=== PATIENT | female | born 1950 | race Caucasian/White ===

== ENCOUNTER → 2017-03-16 | Outpatient (CLI) | payer OTHER ==
[~2017-03-16] MED LIST: MULT-506 PO
--- NOTE | 2017-03-17 07:43 | MAMMOGRAPHY REPORT ---
BILATERAL DIGITAL SCREENING MAMMOGRAM TOMOSYNTHESIS WITH CAD: 03/16/2017 CLINICAL HISTORY: Routine screening. TECHNIQUE: Breast tomosynthesis in addition to standard 2D mammography was performed. Current study was also evaluated with a Computer Aided Detection (CAD) system. COMPARISON: Comparison is made to exams dated: 03/14/2016 mammogram, 03/12/2015 mammogram, 02/28/2014 ma mmogram, 02/12/2013 mammogram, 02/10/2012 mammogram, and 12/31/2010 mammogram - [facility]. BREAST COMPOSITION: The tissue of both breasts is heterogeneously dense, which may obscure small mas ses. FINDINGS: No suspicious masses, calcifications, or areas of architectural distortion are noted in ei ther breast. There has been no significant interval change compared to prior exams. Bilateral asymme tries and scattered benign-appearing calcifications are stable compared to prior exams. IMPRESSION: ACR BI-RADS CATEGORY 2: BENIGN There is no mammographic evidence of malignancy. A 1 year screening mammogram is recommended. The pa tient will receive written notification of the results. Approximately 10% of breast cancers are not detected with mammography. A negative mammographic report should not delay biopsy if a clinically suggestive mass is present. Frida Aguero M.D. /:03/16/2017 16:33:12 Computing Services Director: Mitch GAN)(M), [facility] letter sent: Normal 1/2 BI-RADS Code: ACR BI-RADS Category 2: Benign
== END | disposition home or self-care (01) ==
LOC: C.MAMM 09:56
PROVIDERS: ATTEND Family Medicine
DX: Z12.31 Encounter for screening mammogram for malignant neoplasm of breast (principal)

== ENCOUNTER → 2017-08-24 | Outpatient (CLI) | payer OTHER ==
[2017-08-24 12:16] LABS: BASO % 1.7 %; BASO ABS # 0.07 K/uL (0-0.2); EOS ABS # 0.12 K/uL (0-0.5); HEMATOCRIT 45.4 % (37-47); HEMOGLOBIN 15.1 g/dL (12.0-16.0); IG# 0.01 K/uL (0.00-0.02); LYMPH % 34.7 %; LYMPH ABS # 1.39 K/uL (1.2-3.4); MEAN CELL VOLUME 94.4 fL (80-100); MEAN CORPUSCULAR HEMOGLOBIN 31.4 pg (25-34); MEAN CORPUSCULAR HGB CONC 33.3 g/dl (32-36); MEAN PLATELET VOLUME 10.7 fL (7.4-10.4); MONO % 10.2 %; MONO ABS # 0.41 K/uL (0.11-0.59); NEUT % 50.2 %; NEUT ABS # 2.01 K/uL (1.4-6.5); PLATELET COUNT 296 K/uL (130-400); RED CELL DISTRIBUTION WIDTH CV 12.9 % (11.5-14.5); WHITE BLOOD COUNT 4.01 K/uL (4.8-10.8)
[2017-08-24 12:22] LABS: ALBUMIN 4.3 gm/dl (3.4-5.0); ALT/SGPT 33 U/L (12-78); AST/SGOT 19 U/L (15-37); BLOOD UREA NITROGEN 24 mg/dl (7-18); CALCIUM 10.4 mg/dl (8.5-10.1); CARBON DIOXIDE 28 mmol/L (21-32); CHOLESTEROL 265 mg/dl (0-200); CREATININE 0.66 mg/dl (0.60-1.20); GLUCOSE 102 mg/dl (70-99); POTASSIUM 4.4 mmol/L (3.5-5.1); SODIUM 139 mmol/L (136-145); TOTAL PROTEIN 7.7 gm/dl (6.4-8.2)
[2017-08-24 12:31] LABS: ALKALINE PHOSPHATASE 160 U/L (45-117); LDL CHOLESTEROL CALCULATED 191 mg/dl
== END | disposition home or self-care (01) ==
LOC: C.LAB1850 09:39
PROVIDERS: ATTEND Neuromusculoskeletal Medicine & OMM
DX: Z00.00 Encounter for general adult medical examination without abnormal findings (principal); E78.00 Pure hypercholesterolemia, unspecified; E83.52 Hypercalcemia

== ENCOUNTER 2020-08-15 14:05 | Observation (INO) ==
--- NOTE | 2020-08-15 14:38 | Emergency Department Note ---
History of Present Illness General Chief complaint: Neuro Symptoms/Deficit Stated complaint: KIDNEY SURG 08/12,NOW WEAKNESS IN LEFT ARM Time Seen by Provider: 08/15/20 14:23 Source: patient History of Present Illness Provider complaint: Left arm weakness Onset (ago): hour(s) Location: upper extremity and left Radiation: non-radiation Severity: severe Pain Consistency: + now resolved Quality: + other (Arm is flopping) Relieved By: + none Exacerbated By: + none Associated symptoms: no chest pain, no cough, no fever/chills, no nausea/vomiting and no shortness of breath This is a 70-year-old female who presents with left arm weakness intermittently since yesterday morning. The patient states that yesterday she had 3 episodes s tarting in the morning where she had flopping of her left hand where she could not move it. She states the episodes lasted a little over 20 minutes. She did recently have stent placement by urology and she called them and they took her off of Cipro. She states that today at 1 PM she developed floppiness of the entire left arm. This lasted approximately half an hour and is now completely resolved. She denies any numbness to the upper extremity. She states that she has had several weeks of neck pain but her pain never radiates down her arm. She denies any numbness or weakness to her other extremities. She has had no difficulty with her speech, walking, swallowing, thinking or vision. She denies any fever, chest pain, shortness of breath, vomiting, abdominal pain, diarrhea or urinary symptoms. She did have a urinary stent placed [address] Panchal. Home Medications Medication Instructions Recorded Confirmed Type cholecalciferol (vitamin D3) 2,000 unit PO QAM #30 tab 06/12/18 08/15/20 Rx [Vitamin D3] omeprazole 20 mg capsule,delayed 20 mg PO HS #90 cap 04/13/20 08/15/20 Rx release sulfamethoxazole 800 1 tab PO BID 3 Days #6 tab 08/14/20 08/15/20 Rx mg-trimethoprim 160 mg tablet acetaminophen-codeine 1 tab PO Q8H PRN 08/15/20 08/15/20 History Allergies Allergy/AdvReac Type Severity Reaction Status Date / Time honey Allergy Unknown SOB,SWELLING Verified 08/12/20 05:51 THROAT ibuprofen Allergy Unknown Unknown Verified 08/12/20 05:51 Iodinated Contrast Media Allergy Unknown Anaphylaxis Verified 08/12/20 05:51 Penicillins Allergy Unknown PASED OUT Verified 08/12/20 05:51 shellfish derived Allergy Unknown Anaphylaxis Verified 08/12/20 05:51 yellow dye Allergy Unknown SIMILAR Unverified 08/12/20 05:51 SYMPTOMS TO ANAPHYLAXIS BUT NOT SEVERE Past Med/Surg History Medical History (Updated 08/15/20 @ 17:43 by Max Oquendo MD) Arthritis Borderline high blood pressure GERD (gastroesophageal reflux disease) Hypercholesterolemia Kidney stones Osteoarthritis Osteoporosis Raynauds disease PT DENIES Temporomandibular joint disorder HX OF, NO RECENT PROBLEM WITH Vitamin D deficiency Surgical History H/O tubal ligation H/O: hysterectomy History of ankle surgery RIGHT History of colonoscopy History of kidney surgery LEFT FOR STONE History of lithotripsy History of open reduction and internal fixation (ORIF) procedure Right leg History of parathyroid surgery History of tooth extraction Family History Father Myocardial infarction Mother Breast cancer Unknown Cancer Other Heart disease Denies family history of Ovarian cancer Prostate cancer Colorectal cancer Social History Smoking Status: Never smoker Second Hand Exposure: No; Hx Alcohol Use: No Hx Substance Use: No Preferred Language: Swedish Communication Ability: Effective Visual Impairment: No Limitations Legal Technician Required: No Beliefs That Will Affect Care: None marital status: Current Living Situation: Spouse Current Living Situation Comment: AND 3 ADULT CHILDREN 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 and A total of 10 systems reviewed and were otherwise negative Physical Exam Vital Signs Vital Signs - 24 hr 08/15/20 14:07 08/15/20 14:40 08/15/20 14:45 Temperature 36.5 C Temperature Source Temporal Artery Scan Pulse Rate 92 H Pulse Rate [Apical] Pulse Rate from SpO2 Sensor Respiratory Rate 18 Respiratory Effort / Characteristics Non-Labored Spontaneous Respiratory Depth Normal Blood Pressure 159/95 H Blood Pressure [Right Arm] Blood Pressure Mean 116 Blood Pressure Mean [Right Arm] Blood Pressure Position Sitting Pulse Oximetry 96 95 Oxygen Delivery Method Room Air Room Air Room Air Sepsis Recent Fever Within 48 Hours No Sepsis New/Unexplained Change in Mental Status No Sepsis Action Taken by Nursing No Action Required 08/15/20 14:59 08/15/20 15:00 08/15/20 15:30 Temperature Temperature Source Pulse Rate 85 85 Pulse Rate [Apical] 79 Pulse Rate from SpO2 Sensor 85 84 Respiratory Rate 18 16 20 Respiratory Effort / Characteristics Non-Labored Spontaneous Respiratory Depth Blood Pressure 183/98 H 176/103 H Blood Pressure [Right Arm] 177/105 H Blood Pressure Mean 126 127 Blood Pressure Mean [Right Arm] 129 Blood Pressure Position Pulse Oximetry 97 97 94 Oxygen Delivery Method Room Air Room Air Room Air Sepsis Recent Fever Within 48 Hours Sepsis New/Unexplained Change in Mental Status Sepsis Action Taken by Nursing 08/15/20 16:00 08/15/20 16:05 08/15/20 16:30 Temperature Temperature Source Pulse Rate 96 H 75 91 H Pulse Rate [Apical] Pulse Rate from SpO2 Sensor 81 Respiratory Rate 18 20 13 Respiratory Effort / Characteristics Respiratory Depth Blood Pressure 180/114 H 169/132 H 156/90 H Blood Pressure [Right Arm] Blood Pressure Mean 136 144 112 Blood Pressure Mean [Right Arm] Blood Pressure Position Pulse Oximetry 95 98 95 Oxygen Delivery Method Room Air Room Air Sepsis Recent Fever Within 48 Hours Sepsis New/Unexplained Change in Mental Status Sepsis Action Taken by Nursing 08/15/20 17:01 08/15/20 17:33 Temperature Temperature Source Pulse Rate 88 88 Pulse Rate [Apical] Pulse Rate from SpO2 Sensor Respiratory Rate 18 20 Respiratory Effort / Characteristics Respiratory Depth Blood Pressure 187/105 H 175/95 H Blood Pressure [Right Arm] Blood Pressure Mean 132 121 Blood Pressure Mean [Right Arm] Blood Pressure Position Pulse Oximetry 98 95 Oxygen Delivery Method Sepsis Recent Fever Within 48 Hours Sepsis New/Unexplained Change in Mental Status Sepsis Action Taken by Nursing Constitutional: Vital signs reviewed. Eyes: Pupils are equal round reactive to light. Conjunctiva are noninjected. ENT: Pharynx is clear without erythema or exudate. Mucous membranes are moist. Neck supple without meningeal signs. Respiratory: Clear to auscultation bilaterally. Breath sounds are equal camryn aterally. Cardiovascular: Regular rate and rhythm. No rubs or gallops. GI: Soft, nondistended and nontender. Bowel sounds are present. Musculoskeletal: No peripheral edema. No lower extremity tenderness. Integumentary: No cyanosis. or jaundice. Neurologic: The patient is awake and alert. Cranial nerves II-XII are intact. Motor is 5 out of 5 all extremities. Sensation is intact to light touch all extremities. Normal speech. No pronator drift. No limb ataxia. Psychiatric: Normal affect. Not anxious appearing. Course Administered Medications Discontinued Medications Acetaminophen (Acetaminophen 325 Mg Tab) 650 mg PO NOW STA Stop: 08/15/20 15:43 Last Admin: 08/15/20 15:49 Dose: 650 mg Documented by: [id number] Aspirin (Aspirin 81 Mg Chew) 324 mg PO NOW STA Stop: 08/15/20 15:53 Last Admin: 08/15/20 15:59 Dose: 324 mg Documented by: [id number] Lorazepam (Lorazepam 0.5 Mg Tab) 0.5 mg PO UD ONE Stop: 08/15/20 16:59 Last Admin: 08/15/20 17:25 Dose: 0.5 mg Documented by: [id number] Medical Decision Making Differential Diagnosis TIA, CVA, intracranial hemorrhage, intracranial mass, cervical radiculopathy Medical Records Attestation: I reviewed the patient's medical records. I did perform a limited focused review of portions of the patient's old chart on the electronic medical record. The patient underwent Cystoscopy, left ureteroscopy with laser lithotripsy, stone extraction and retrograde pyelogram and left stent placement by Dr. Panchal 3 days ago. Home Medications Current Medication List: was personally reviewed by me Laboratory Data Attestation: I reviewed the patient's lab results. Result diagrams: 08/15/20 14:42 08/15/20 14:42 Lab Results 08/15/20 08/15/20 08/15/20 Range/Units 14:38 14:42 14:42 WBC 5.12 (4.8-10.8) K/uL RBC 4.45 (4.2-5.4) M/uL Hgb 14.5 (12.0-16.0) g/dL Hct 43.3 (37-47) % MCV 97.3 (80-100) fL MCH 32.6 (25-34) pg MCHC 33.5 (32-36) g/dL RDW Std Deviation 44.8 (36.4-46.3) fL RDW Coeff of Rowena 12.7 (11.5-14.5) % Plt Count 371 (130-400) K/uL MPV 9.9 (7.4-10.4) fL Immature Gran % (Auto) 0.0 % Neut % (Auto) 49.8 % Lymph % (Auto) 34.6 % Terrell % (Auto) 12.1 % Eos % (Auto) 2.7 % Baso % (Auto) 0.8 % Neut # (Auto) 2.55 (1.4-6.5) K/uL Lymph # (Auto) 1.77 (1.2-3.4) K/uL Terrell # (Auto) 0.62 H (0.11-0.59) K/uL Eos # (Auto) 0.14 (0-0.5) K/uL Baso # (Auto) 0.04 (0-0.2) K/uL Immature Gran # (Auto) 0.00 (0.00-0.02) K/uL PT (9.0-12.0) Seconds INR (0.9-1.1) APTT (21.0-31.0) Seconds PTT Ratio Sodium (136-145) mmol/L Potassium (3.5-5.1) mmol/L Chloride (98-107) mmol/L Carbon Dioxide (21-32) mmol/L Anion Gap (3-11) BUN (7-18) mg/dl Creatinine (0.6-1.2) mg/dl Est Cr Clr Drug Dosing ml/min Est GFR ( Amer) Est GFR (Non-Af Amer) BUN/Creatinine Ratio (10-20) Glucose (70-99) mg/dl POC Glucose 94 (70-99) mg/dl Calcium (8.5-10.1) mg/dl Magnesium (1.8-2.4) mg/dl Total Bilirubin (0.2-1) mg/dl AST (15-37) U/L ALT (12-78) U/L Alkaline Phosphatase (45-117) U/L Troponin I (0-0.045) ng/ml Total Protein (6.4-8.2) gm/dl Albumin (3.4-5.0) gm/dl Globulin (2.5-4.0) gm/dl Albumin/Globulin Ratio (0.9-2) COVID-19 Eval Order SARS-CoV-2, RNA, NAAT (NEGATIVE) Blood Type O Positive Antibody Screen NEGATIVE 08/15/20 08/15/20 08/15/20 Range/Units 14:42 14:42 15:45 WBC (4.8-10.8) K/uL RBC (4.2-5.4) M/uL Hgb (12.0-16.0) g/dL Hct (37-47) % MCV (80-100) fL MCH (25-34) pg MCHC (32-36) g/dL RDW Std Deviation (36.4-46.3) fL RDW Coeff of Rowena (11.5-14.5) % Plt Count (130-400) K/uL MPV (7.4-10.4) fL Immature Gran % (Auto) % Neut % (Auto) % Lymph % (Auto) % Terrell % (Auto) % Eos % (Auto) % Baso % (Auto) % Neut # (Auto) (1.4-6.5) K/uL Lymph # (Auto) (1.2-3.4) K/uL Terrell # (Auto) (0.11-0.59) K/uL Eos # (Auto) (0-0.5) K/uL Baso # (Auto) (0-0.2) K/uL Immature Gran # (Auto) (0.00-0.02) K/uL PT 9.8 (9.0-12.0) Seconds INR 1.0 (0.9-1.1) APTT 28.6 (21.0-31.0) Seconds PTT Ratio 1.1 Sodium 141 (136-145) mmol/L Potassium 4.1 (3.5-5.1) mmol/L Chloride 107 (98-107) mmol/L Carbon Dioxide 30 (21-32) mmol/L Anion Gap 4.0 (3-11) BUN 21 H (7-18) mg/dl Creatinine 0.76 (0.6-1.2) mg/dl Est Cr Clr Drug Dosing 60.9 ml/min Est GFR ( Amer) 91.5 Est GFR (Non-Af Amer) 78.9 BUN/Creatinine Ratio 27.1 H (10-20) Glucose 92 (70-99) mg/dl POC Glucose (70-99) mg/dl Calcium 10.6 H (8.5-10.1) mg/dl Magnesium 2.3 (1.8-2.4) mg/dl Total Bilirubin 0.4 (0.2-1) mg/dl AST 13 L (15-37) U/L ALT 30 (12-78) U/L Alkaline Phosphatase 171 H (45-117) U/L Troponin I < 0.015 (0-0.045) ng/ml Total Protein 7.7 (6.4-8.2) gm/dl Albumin 4.0 (3.4-5.0) gm/dl Globulin 3.7 (2.5-4.0) gm/dl Albumin/Globulin Ratio 1.1 (0.9-2) COVID-19 Eval [email or web address] SARS-CoV-2, RNA, NAAT (NEGATIVE) Blood Type Antibody Screen 08/15/20 Range/Units 15:45 WBC (4.8-10.8) K/uL RBC (4.2-5.4) M/uL Hgb (12.0-16.0) g/dL Hct (37-47) % MCV (80-100) fL MCH (25-34) pg MCHC (32-36) g/dL RDW Std Deviation (36.4-46.3) fL RDW Coeff of Rowena (11.5-14.5) % Plt Count (130-400) K/uL MPV (7.4-10.4) fL Immature Gran % (Auto) % Neut % (Auto) % Lymph % (Auto) % Terrell % (Auto) % Eos % (Auto) % Baso % (Auto) % Neut # (Auto) (1.4-6.5) K/uL Lymph # (Auto) (1.2-3.4) K/uL Terrell # (Auto) (0.11-0.59) K/uL Eos # (Auto) (0-0.5) K/uL Baso # (Auto) (0-0.2) K/uL Immature Gran # (Auto) (0.00-0.02) K/uL PT (9.0-12.0) Seconds INR (0.9-1.1) APTT (21.0-31.0) Seconds PTT Ratio Sodium (136-145) mmol/L Potassium (3.5-5.1) mmol/L Chloride (98-107) mmol/L Carbon Dioxide (21-32) mmol/L Anion Gap (3-11) BUN (7-18) mg/dl Creatinine (0.6-1.2) mg/dl Est Cr Clr Drug Dosing ml/min Est GFR ( Amer) Est GFR (Non-Af Amer) BUN/Creatinine Ratio (10-20) Glucose (70-99) mg/dl POC Glucose (70-99) mg/dl Calcium (8.5-10.1) mg/dl Magnesium (1.8-2.4) mg/dl Total Bilirubin (0.2-1) mg/dl AST (15-37) U/L ALT (12-78) U/L Alkaline Phosphatase (45-117) U/L Troponin I (0-0.045) ng/ml Total Protein (6.4-8.2) gm/dl Albumin (3.4-5.0) gm/dl Globulin (2.5-4.0) gm/dl Albumin/Globulin Ratio (0.9-2) COVID-19 Eval Order SARS-CoV-2, RNA, NAAT NEGATIVE (NEGATIVE) Blood Type Antibody Screen Imaging Data Radiologist's Impression: CT OF THE HEAD WITHOUT CONTRAST CLINICAL HISTORY: Left arm weakness. COMPARISON STUDY: No previous studies for comparison. CT DOSE: 687.98 mGy.cm TECHNIQUE: Helical axial images of the head were obtained without IV contrast. Automated exposure control was utilized for the study. A dose lowering technique was utilized adhering to the principles of ALARA. FINDINGS: No acute intracranial hemorrhage, midline shift or mass effect is present. The ventricular system is unremarkable. The basal cisterns are patent. No extra-axial collections are present. There are no findings to suggest acute dural sinus thrombosis or acute territorial infarct. No significant calvarial abnormalities are present. Visualized portions of the sinuses and mastoid air cells are clear. IMPRESSION: No acute intracranial findings. ACT 112: Negative or not required by law. Electronically signed by: Chava Varela M.D. 08/15/2020 2:58 PM Dictated: 08/15/20 145 Transcribed: 08/15/20 145 XR chest 1V portable CLINICAL HISTORY: Stroke Like Symptoms COMPARISON STUDY: Chest radiograph June 25, 2020. FINDINGS: Lung volumes are normal. Lungs are clear. There is no pneumothorax or pleural effusion. Cardiac size is stable. Mediastinal contours are normal. There is no evidence for pulmonary edema. IMPRESSION: No acute cardiopulmonary findings. ACT 112: Negative or not required by law. Electronically signed by: Chava Varela M.D. 08/15/2020 3:17 PM Dictated: 08/15/20 151 Transcribed: 08/15/201516 ECG Data Attestation: I personally reviewed and interpreted this ECG as follows: Indication: + other (Stroke symptoms) Rate (beats per minute): 86 Rhythm: + normal sinus ECG ST segments: no ST elevation ECG Findings: + LVH (Moderate voltage criteria); no PVCs MDM Narrative I did evaluate the patient as noted above. The patient appears to be having multiple TIAs. She stated she had "floppy" weakness of her left hand 3 times yesterday each lasting slightly over 20 minutes at a time. She then had the same symptoms over her entire arm today which lasted about 30 minutes. Currently she is neurologically intact and her NIH score 0. She does have a headache but states that she has had some neck pain for 3 weeks and it causes her to have headaches. She was given Tylenol for this. IV access was established. I did place an order for continuous cardiac monitoring. The monitor showed normal sinus rhythm at a rate of 85 bpm. I did order and personally review the patient's 12-lead EKG as described above. There is no evidence of dysrhythmia or acute ischemia. I did order and personally reviewed the images of the patient's chest x-ray as described above. There is no evidence of acute findings. I did order and review the patient's blood work as noted in the electronic medical record. CBC, electrolytes and coagulation panel is unremarkable. Troponin is negative. I did order a CT of the head. I did r eview the images myself as well as the radiology report as described above. There is no evidence of acute intracranial abnormality. I did reassess the patient. She does not have any symptoms at this time. I did discuss the test results with her and recommended she stay in the hospital for TIA work-up including MRI and MRA of the brain. She could not receive a CTA because of an anaphylactic reaction to IV contrast. I did discuss case with the hospitalist and case folder. Impression & Plan TIA (transient ischemic attack), Left arm weakness Discharge Plan Visit Data Chief Complaint: Neuro Symptoms/Deficit Stated Complaint: KIDNEY SURG 08/12,NOW WEAKNESS IN LEFT ARM ED Provider: Max Oquendo Discharge Problem: TIA (transient ischemic attack), Left arm weakness Patient Disposition: Being Evaluated by Hospitalist Forms Stand Alone Forms: [facility] Prescriptions Prescriptions: No Action omeprazole 20 mg capsule,delayed release(DR/EC) 20 mg PO HS Qty: 90 RF: 1 sulfamethoxazole-trimethoprim [Bactrim DS] 800-160 mg tablet 1 tab PO BID 3 Days Qty: 6 RF: 0 acetaminophen-codeine 300-30 mg tablet 1 tab PO Q8H PRN (Reason: Pain) RF: 0 cholecalciferol (vitamin D3) [Vitamin D3] 1,000 unit Tablet 2,000 unit PO QAM Qty: 30 RF: 0 Referrals Referrals: Patricia Elias MD [Primary Care Provider] -
[2020-08-15 14:56] LABS: Basophils # (auto) 0.04 K/uL (0-0.2); Basophils % (auto) 0.8 %; Eosinophils # (auto) 0.14 K/uL (0-0.5); Eosinophils % (auto) 2.7 %; Hematocrit (blood only) 43.3 % (37-47); Hemoglobin 14.5 g/dL (12.0-16.0); Lymphocytes # (auto) 1.77 K/uL (1.2-3.4); Lymphocytes % (auto) 34.6 %; Mean Corpuscular Hemoglobin 32.6 pg (25-34); Mean Corpuscular Hgb Conc 33.5 g/dL (32-36); Mean Corpuscular Volume 97.3 fL (80-100); Mean Platelet Volume 9.9 fL (7.4-10.4); Monocytes # (auto) 0.62 K/uL (0.11-0.59); Monocytes % (auto) 12.1 %; Neutrophils # (auto) 2.55 K/uL (1.4-6.5); Neutrophils % (auto) 49.8 %; Platelet Count 371 K/uL (130-400); RDW Coefficient of Variation 12.7 % (11.5-14.5); RDW Standard Deviation 44.8 fL (36.4-46.3); Red Blood Count 4.45 M/uL (4.2-5.4); White Blood Count 5.12 K/uL (4.8-10.8)
--- NOTE | 2020-08-15 14:59 | CT Scan Report ---
CT OF THE HEAD WITHOUT CONTRAST CLINICAL HISTORY: Left arm weakness. COMPARISON STUDY: No previous studies for comparison. CT DOSE: 687.98 mGy.cm TECHNIQUE: Helical axial images of the head were obtained without IV contrast. Automated exposure con trol was utilized for the study. A dose lowering technique was utilized adhering to the principles o f ALARA. FINDINGS: No acute intracranial hemorrhage, midline shift or mass effect is present. The ventricular system is unremarkable. The basal cisterns are patent. No extra-axial collections are present. There are no findings to suggest acute dural sinus thrombosis or acute territorial infarct. No significant calvarial abnormalities are present. Visualized portions of the sinuses and mastoid air cells are gladys ar. IMPRESSION: No acute intracranial findings. ACT 112: Negative or not required by law. Electronically signed by: Chava Varela M.D. 08/15/2020 2:58 PM
[2020-08-15 15:12] LABS: Alanine Aminotransferase 30 U/L (12-78); Aspartate Aminotransferase 13 U/L (15-37); BUN Creatinine Ratio 27.1 (10-20); Blood Urea Nitrogen 21 mg/dl (7-18); Calcium 10.6 mg/dl (8.5-10.1); Carbon Dioxide 30 mmol/L (21-32); Chloride 107 mmol/L (98-107); Creatinine Clr Calc Pharmacy 60.9 ml/min; Est GFR (African American) 91.5; Est GFR (Non-African American) 78.9; Glucose 92 mg/dl (70-99); Magnesium 2.3 mg/dl (1.8-2.4); Potassium 4.1 mmol/L (3.5-5.1); Sodium 141 mmol/L (136-145)
[2020-08-15 15:16] LABS: Albumin Globulin Ratio 1.1 (0.9-2); Alkaline Phosphatase 171 U/L (45-117); Bilirubin,Total 0.4 mg/dl (0.2-1); Globulin 3.7 gm/dl (2.5-4.0); Partial Thromboplastin Ratio 1.1; Partial Thromboplastin Time 28.6 Seconds (21.0-31.0); Prothrombin Time 9.8 Seconds (9.0-12.0); Total Protein 7.7 gm/dl (6.4-8.2); Troponin I < 0.015 ng/ml (0-0.045)
--- NOTE | 2020-08-15 15:18 | XRay Report ---
XR chest 1V portable CLINICAL HISTORY: Stroke Like Symptoms COMPARISON STUDY: Chest radiograph June 25, 2020. FINDINGS: Lung volumes are normal. Lungs are clear. There is no pneumothorax or pleural effusion. Car diac size is stable. Mediastinal contours are normal. There is no evidence for pulmonary edema. IMPRESSION: No acute cardiopulmonary findings. ACT 112: Negative or not required by law. Electronically signed by: Chava Varela M.D. 08/15/2020 3:17 PM
[2020-08-15] MEDS ORDERED: ACETAMINOPHEN 325 MG TAB PO STA (15:42)
[2020-08-15] MEDS ORDERED: ASPIRIN 81 MG CHEW PO STA (15:52)
--- NOTE | 2020-08-15 16:56 | History & Physical Report ---
Date of Service August 15, 2020 Assessment & Plan (1) CVA (cerebral vascular accident): Symptoms of left arm weakness resolved but MRI brain positive for CVA. Complete workup with TTE, Carotid US, HbA1C and lipid panel with AM labs ASA 324mg PO chew given in ER. Will continue ASA 81mg PO daily. Statin depending on LDL in AM. HbA1C and lipid panel with AM labs Allow permissive hypertension PT/OT consults No need for speech consult Consult neurology (2) Left arm weakness: As above. No cervical spine pathology noted to be causing this despite Hx neck pain and frontal headaches. (3) Osteoporosis: Continue vitamin D supplementaiton (4) GERD (gastroesophageal reflux disease): Switch omeprazole for pantoprazole per hospital formulary (5) Nephrolithiasis: s/p lithotripsy and left stent placement Continue outpatient Bactrim (6) Hyperparathyroidism: Noted history of such. (7) DVT prophylaxis: Lovenox 40mg SQ daily Admission and Anticipated Discharge Date Admission Date: Aug 16, 2020 History of Present Illness Chief Complaint: Left arm weakness Primary Care Provider: Patricia Elias MD Linda Arreguin is a 70 year old female who presents to the ER with left arm weakness. This started yesterday with intermittent left hand weakness with possible tingling sensation in her fingers. Episodes would last for 5 minutes and occurred 4-5 times yesterday. She underwent lithotripsy 3 days ago and has been on ciprofloxacin, therefore she called her urologist office yesterday due to concern the ciprofloxacin was causing her left hand symptoms and was switched to Bactrim although she is yet to pick this up. Around 1pm today her whole left arm went sudden weak lasting approximately 30 minutes. Completely resolved by the time she came to the ER. No speech, hearing, vision, facial weakness noted. No fever/chills. She reports a longer history of "migraine" headaches. These have been going on for 2 months with no history prior to this. She reports flashing lights in both eyes followed by a bilateral aching frontal headache which is not pulsating but constant. She treats this with acetaminophen and episode last around 2 hours. For the past 2 weeks she has also been seeing a chiropractor for right sided neck pain which has gradually been getting worse over the time without any sensory radiation down her arm. She notes no history of cervical radicular symptoms. Stroke risk - non-smoker, no hypertension, no prior RI or CVA, no hyperlipidemia. In the ER she underwent CT head with no acute intracranial abnormality. Unable to have CTA due to anaphylaxis to IV contrast previously. No telestroke was performed due to complete resolution of symptoms. Given neck pain and intermittent nature of symptoms she was kept in ER to perform further workup to see if she could be discharged from the ER with MRI/MRA head, MRI cervical spine to r/o radicular pathology and carotid US. Lorazepam ordered due to severe claustrophobia. Subsequent MRI showed acute CVA and she was referred to medicine for admission and ongoing management of such. Allergies Allergy/AdvReac Type Severity Reaction Status Date / Time honey Allergy Unknown SOB,SWELLING Verified 08/12/20 05:51 THROAT ibuprofen Allergy Unknown Unknown Verified 08/12/20 05:51 Iodinated Contrast Media Allergy Unknown Anaphylaxis Verified 08/12/20 05:51 Penicillins Allergy Unknown PASED OUT Verified 08/12/20 05:51 shellfish derived Allergy Unknown Anaphylaxis Verified 08/12/20 05:51 yellow dye Allergy Unknown SIMILAR Unverified 08/12/20 05:51 SYMPTOMS TO ANAPHYLAXIS BUT NOT SEVERE Home Medications Medication Instructions Recorded Confirmed Type cholecalciferol (vitamin D3) 2,000 unit PO QAM #30 tab 06/12/18 08/15/20 Rx [Vitamin D3] omeprazole 20 mg capsule,delayed 20 mg PO HS #90 cap 04/13/20 08/15/20 Rx release sulfamethoxazole 800 1 tab PO BID 3 Days #6 tab 08/14/20 08/15/20 Rx mg-trimethoprim 160 mg tablet acetaminophen-codeine 1 tab PO Q8H PRN 08/15/20 08/15/20 History Past Med/Surg History Medical History Arthritis Borderline high blood pressure GERD (gastroesophageal reflux disease) Hypercholesterolemia Kidney stones Osteoarthritis Osteoporosis Raynauds disease PT DENIES Temporomandibular joint disorder HX OF, NO RECENT PROBLEM WITH Vitamin D deficiency Surgical History H/O tubal ligation H/O: hysterectomy History of ankle surgery RIGHT History of colonoscopy History of kidney surgery LEFT FOR STONE History of lithotripsy History of open reduction and internal fixation (ORIF) procedure Right leg History of parathyroid surgery History of tooth extraction Family History Father Myocardial infarction Mother Breast cancer Unknown Cancer Other Heart disease Denies family history of Ovarian cancer Prostate cancer Colorectal cancer Social History Smoking Status: Never smoker Second Hand Exposure: No; Hx Alcohol Use: No Hx Substance Use: No Preferred Language: Ugandan Communication Ability: Effective Visual Impairment: No Limitations Registered Diet Technician Required: No Beliefs That Will Affect Care: None marital status: Current Living Situation: Spouse Current Living Situation Comment: AND 3 ADULT CHILDREN 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 Other Information That Helps Us Care for You: No Feels Safe at Home: Yes Safety Concerns: Feels Safe At This Time Seatbelt Use: always Assistive Devices: Glasses Assistive Devices Comment: Partial lower Review of Systems Review of Systems: All systems reviewed & are unremarkable except as noted in HPI & below Physical Exam Constitutional: well developed and well nourished; no acute distress Eyes: PERRL, conjunctivae normal, anicteric sclerae ENMT: external ear and nose normal, oropharynx normal Neck: trachea midline, no thyromegaly Respiratory: normal respiratory effort, lungs clear to auscultation Cardiovascular: RRR, no murmur, no edema Gastrointestinal (Abdomen): normal bowel sounds, soft, nontender, no hepatosplenomegaly Musculoskeletal: no cyanosis or clubbing, extremities motor strength 5/5 Skin: no rashes, warm and dry Neurologic: moves all extremities and awake; no focal motor deficits and not confused Speech / Cognition: normal speech Motor/Sensory: no tremor and no pronator drift Cranial Nerves: PERRL, normal accommodation, EOM intact bilaterally, normal facial strength, normal gag reflex, normal hearing, able to rotate head bilaterally, able to elevate shoulders bilaterally and no nystagmus Psychiatric: A+Ox3, euthymic affect Results & Data Results & Data ([facility]) Vital Signs (Past 12 Hours) Vital Signs Temp Pulse Pulse Resp BP BP Pulse Ox 08/15/20 16:05 75 20 169/132 H 98 08/15/20 16:00 96 H 18 180/114 H 95 08/15/20 15:30 85 20 176/103 H 94 08/15/20 15:00 85 16 183/98 H 97 08/15/20 14:59 79 18 177/105 H 97 08/15/20 14:40 95 08/15/20 14:07 36.5 C 92 H 18 159/95 H 96 Diagnostic Findings XR chest 1V portable IMPRESSION: No acute cardiopulmonary findings. CT OF THE HEAD WITHOUT CONTRAST IMPRESSION: No acute intracranial findings. MRI OF THE CERVICAL SPINE WITHOUT CONTRAST IMPRESSION: 1. Exam mildly compromised by motion artifact. Mild multilevel degenerative changes within the cervical spine. No severe central canal stenosis. 2. Normal cervical cord signal and caliber. 3. Neural foramen suboptimally assessed on this exam. MRA OF THE INTRACRANIAL CIRCULATION WITHOUT CONTRAST IMPRESSION: Unremarkable MRA of the head. No central vessel occlusion. MRI OF THE BRAIN WITHOUT CONTRAST IMPRESSION: Small 4 mm acute infarct within the posterior right frontal lobe which accounts for left upper extremity weakness. Two additional suspected punctate infarcts within the right occipital lobe. No mass effect. No hemorrhage. Medications Administered ER medications given: Acetaminophen 650mg PO ASA 324mg PO ECG Indication: other (stroke-like symptoms) Rate (beats per minute): 86 Rhythm: normal sinus Findings: no acute ischemic change Comparison ECG Date: from (2019) Change: no significant change Code Status & VTE Plan Code Status Full VTE Prophylaxis Plan VTE Prophylaxis will be ordered: Yes PG Care Time/CCT Total # of Minutes Spent Total Time Spent with Patient: Total time spent is greater than 50% in coordination of care (as documented) at patient's floor/unit and/or counseling patient: Coding Level of Care Code 39020 Initial Inpt Care Lvl 3 Diagnoses CVA (cerebral vascular accident) I63.9 Left arm weakness R29.898 Osteoporosis M81.0 GERD (gastroesophageal reflux disease) K21.9 Nephrolithiasis N20.0 Hyperparathyroidism E21.3 DVT prophylaxis Z29.9
[2020-08-15] MEDS ORDERED: LORazepam 0.5 MG TAB PO ONE (16:58)
[2020-08-15] MEDS ORDERED: LORazepam 0.5 MG/1 ML VIAL IV STA (17:50)
--- NOTE | 2020-08-15 19:13 | Magnetic Resonance Report ---
MRI OF THE BRAIN WITHOUT CONTRAST CLINICAL HISTORY: Left upper extremity weakness. COMPARISON STUDY: Head CT performed earlier today. TECHNIQUE: Utilizing a 1.5 Miguelina magnet and dedicated coil, multiplanar, multiecho imaging of the bra in was performed without IV contrast. FINDINGS: Note is made of a small 4 mm focus of restricted diffusion within the posterior right front al lobe shown on axial image 16 of 22 of the diffusion-weighted sequence. This is hypointense on the ADC map. Two additional small foci of increased signal intensity within the right occipital lobe are also noted. The more inferior lesion is hypointense on the ADC map and therefore represents an acute infarct. The other lesion is indeterminate but likely also reflects an acute punctate infarct. There is no mass effect. No hemorrhage. Ventricular system is normal. Basal cisterns are patent. There are no extra-axial collections. No intracranial masses identified on this unenhanced exam. Old white nandini er T2 hyperintense foci are noted. These likely reflect small vessel disease. Calvarial signal is nor mal. IMPRESSION: Small 4 mm acute infarct within the posterior right frontal lobe which accounts for left upper extrem ity weakness. Two additional suspected punctate infarcts within the right occipital lobe. No mass eff ect. No hemorrhage. ACT 112: Negative or not required by law. Electronically signed by: Chava Varela M.D. 08/15/2020 7:12 PM
--- NOTE | 2020-08-15 19:15 | Magnetic Resonance Report ---
MRA OF THE INTRACRANIAL CIRCULATION WITHOUT CONTRAST CLINICAL HISTORY: Left upper extremity weakness COMPARISON STUDY: Head CT performed earlier today. TECHNIQUE: Utilizing a 1.5 Miguelina magnet and 3-D [id number]-dv-[id number] technique, unenhanced MRA of the intra cranial circulation was obtained. FINDINGS: The bilateral M1, M2, A1 and A2 segments are patent. No central vessel occlusion is present . No intracranial aneurysm is noted. The posterior circulation is also intact. No significant stenosi s is noted within the intracranial vessels. IMPRESSION: Unremarkable MRA of the head. No central vessel occlusion. ACT 112: Negative or not required by law. Electronically signed by: Chava Varela M.D. 08/15/2020 7:14 PM
--- NOTE | 2020-08-15 19:27 | Magnetic Resonance Report ---
MRI OF THE CERVICAL SPINE WITHOUT CONTRAST CLINICAL HISTORY: Left upper extremity weakness. COMPARISON: None. TECHNIQUE: Utilizing a 1.5 Miguelina magnet and dedicated coil, multiplanar, multiecho imaging of the ce rvical spine was performed without IV contrast. FINDINGS: This exam is mildly compromised by motion artifact. Cervical cord signal and caliber are normal. Ther e is no cervical spine fracture. There is no suspicious marrow replacement. Paravertebral soft tissue s are unremarkable. C2-C3: The central canal and neural foramen are patent. C3-C4: The central canal and neural foramen are patent. C4-C5: The central canal and neural foramen are patent. C5-C6: Mild posterior disc osteophyte complex slightly effaces the ventral thecal sac. There is no s evere central canal stenosis. A left-sided perineural cyst at this level is noted. Neural foramen are suboptimally assessed due to artifact. C6-C7: Posterior disc osteophyte complex effaces the ventral thecal sac. There is no severe central canal stenosis. Neural foramen are suboptimally assessed due to artifact. C7-T1: Central canal and neural foramen are patent. IMPRESSION: 1. Exam mildly compromised by motion artifact. Mild multilevel degenerative changes within the cervic al spine. No severe central canal stenosis. 2. Normal cervical cord signal and caliber. 3. Neural foramen suboptimally assessed on this exam. ACT 112: Negative or not required by law. Electronically signed by: Chava Varela M.D. 08/15/2020 7:26 PM
[2020-08-15] MEDS ORDERED: ONDANSETRON INJ 2 MG/ML 2 ML VIAL IV PRN (21:54)
[2020-08-15] MEDS ORDERED: PHARMACIST DISCHARGE MED REC CONSULT PRN (21:54)
[2020-08-15] MEDS ORDERED: ACETAMINOPHEN 325 MG TAB PO PRN (21:54)
[2020-08-15] MEDS ORDERED: PANTOprazole 40 MG TAB PO SCH (22:00)
[2020-08-15] MEDS: SULFAMETHOXAZOLE/TRIMETHOPRIM DS 800/160MG TAB PO SCH (22:28)
[2020-08-16 06:58] LABS: Basophils # (auto) 0.05 K/uL (0-0.2); Basophils % (auto) 1.1 %; Eosinophils # (auto) 0.15 K/uL (0-0.5); Eosinophils % (auto) 3.4 %; Hematocrit (blood only) 42.2 % (37-47); Hemoglobin 14.4 g/dL (12.0-16.0); Immature Granulocytes # (auto) 0.01 K/uL (0.00-0.02); Immature Granulocytes % (auto) 0.2 %; Lymphocytes # (auto) 1.51 K/uL (1.2-3.4); Lymphocytes % (auto) 34.2 %; Mean Corpuscular Hemoglobin 32.9 pg (25-34); Mean Corpuscular Hgb Conc 34.1 g/dL (32-36); Mean Corpuscular Volume 96.3 fL (80-100); Mean Platelet Volume 9.7 fL (7.4-10.4); Monocytes # (auto) 0.52 K/uL (0.11-0.59); Monocytes % (auto) 11.8 %; Neutrophils # (auto) 2.17 K/uL (1.4-6.5); Neutrophils % (auto) 49.3 %; Platelet Count 370 K/uL (130-400); RDW Coefficient of Variation 12.6 % (11.5-14.5); RDW Standard Deviation 44.2 fL (36.4-46.3); Red Blood Count 4.38 M/uL (4.2-5.4); White Blood Count 4.41 K/uL (4.8-10.8)
[2020-08-16 07:32] LABS: BUN Creatinine Ratio 25.3 (10-20); Calcium 10.1 mg/dl (8.5-10.1); Creatinine Clr Calc Pharmacy 60.4 ml/min; Est GFR (African American) 91.5; Est GFR (Non-African American) 78.9
[2020-08-16] MEDS ORDERED: ASPIRIN 81 MG ECTAB PO SCH (09:00)
[2020-08-16] MEDS ORDERED: CHOLECALCIFEROL 1,000 UNITS 25 MCG TAB PO SCH (09:00)
[2020-08-16] MEDS ORDERED: ENOXAPARIN INJ 40 MG/0.4 ML SYR SQ SCH (09:00)
[2020-08-16] MEDS: SULFAMETHOXAZOLE/TRIMETHOPRIM DS 800/160MG TAB PO SCH (09:03)
--- NOTE | 2020-08-16 09:17 | Ultrasound Report ---
US carotid doppler BI CLINICAL HISTORY: 70 years-old Female with Left upper extremity weakness, stroke workup. Acute strok elike symptoms COMPARISON: MRA of the head of same day TECHNIQUE: Multiple real time sonographic images of the carotid bifurcations were obtained assessing duvall scale, color Doppler and spectral wave form appearance FINDINGS: RIGHT CAROTID: The peak systolic velocity measured within the right ICA is49 cm/sec. The end diasto lic velocity measured 15 cm/sec. The ICA to CCA ratio measured 0.8 which correlates with a stenosis of 0-50%. LEFT CAROTID: The peak systolic velocity measured within the left ICA is42 cm/sec. The end diastoli c velocity measured 18 cm/sec. The ICA to CCA ratio measured 0.7 which correlates with a stenosis of 0-50%. There is normal antegrade vertebral flow bilaterally. Blood pressure on the right upper extremity is measured at 167/96 and on the left is measured at 166/100. IMPRESSION: 1. No hemodynamically significant stenosis or significant atherosclerotic plaquing. 2. Normal antegrade vertebral flow bilaterally. ACT 112: Negative or not required by law. The above report was generated using voice recognition software. It may contain grammatical, syntax o r spelling errors. Electronically signed by: Gordon Arnett M.D. 08/16/2020 9:15 AM
--- NOTE | 2020-08-16 10:20 | Neurology Consultation ---
Date of Consultation August 16, 2020 Assessment & Plan (1) CVA (cerebral vascular accident): Multifocal punctate embolic appearing infarcts to the right cerebral hemisphere. Symptomatically resolved. Follow-up with results of echocardiography. Would recommend 30-day cardiac monitoring as outpatient. Agree with aspirin 81 mg/day. Patient will need additional evaluation and management of hypertension as an outpatient. Permissive hypertension acceptable for the time being. Consider starting a statin. No further immediate recommendations. History of Present Illness Reason for Consultation: Stroke Requesting Physician: Silvestre Saavedra MD Attending Physician: Kendy Magallon DO History of Present Illness The patient is a 70-year-old female with a chief complaint of intermittent left upper extremity weakness that began the day prior to her assessment in the emergency department yesterday characterized by inability to move the hand. She experienced 3 episodes lasting about 20 minutes each. She denies any associated weakness of the leg or change in speech. She does complain of intermittent headaches recently with associated vision changes/flashing lights. She has also been following with a chiropractor recently for right sided cervicalgia, without associated radicular symptoms. She has not had a recurrence of left upper extremity weakness overnight. She did have a arterial stent placed recently for treatment of a ureteral stone. A brain MRI has revealed a small acute infarct within the posterior right frontal lobe and 2 additional punctate infarcts within the right occipital lobe. She has been started on aspirin. Allergies Allergy/AdvReac Type Severity Reaction Status Date / Time honey Allergy Unknown SOB,SWELLING Verified 08/12/20 05:51 THROAT ibuprofen Allergy Unknown Unknown Verified 08/12/20 05:51 Iodinated Contrast Media Allergy Unknown Anaphylaxis Verified 08/12/20 05:51 Penicillins Allergy Unknown PASED OUT Verified 08/12/20 05:51 shellfish derived Allergy Unknown Anaphylaxis Verified 08/12/20 05:51 yellow dye Allergy Unknown SIMILAR Unverified 08/12/20 05:51 SYMPTOMS TO ANAPHYLAXIS BUT NOT SEVERE Home Medications Medication Instructions Recorded Confirmed Type cholecalciferol (vitamin D3) 2,000 unit PO QAM #30 tab 06/12/18 08/15/20 Rx [Vitamin D3] omeprazole 20 mg capsule,delayed 20 mg PO HS #90 cap 04/13/20 08/15/20 Rx release sulfamethoxazole 800 1 tab PO BID 3 Days #6 tab 08/14/20 08/15/20 Rx mg-trimethoprim 160 mg tablet acetaminophen-codeine 1 tab PO Q8H PRN 08/15/20 08/15/20 History Patient History Medical History Arthritis Borderline high blood pressure GERD (gastroesophageal reflux disease) Hypercholesterolemia Kidney stones Osteoarthritis Osteoporosis Raynauds disease PT DENIES Temporomandibular joint disorder HX OF, NO RECENT PROBLEM WITH Vitamin D deficiency Surgical History H/O tubal ligation H/O: hysterectomy History of ankle surgery RIGHT History of colonoscopy History of kidney surgery LEFT FOR STONE History of lithotripsy History of open reduction and internal fixation (ORIF) procedure Right leg History of parathyroid surgery History of tooth extraction Family History Father Myocardial infarction Mother Breast cancer Unknown Cancer Other Heart disease Denies family history of Ovarian cancer Prostate cancer Colorectal cancer Social History Smoking Status: Never smoker Second Hand Exposure: No; Hx Alcohol Use: No Hx Substance Use: No Preferred Language: Yoruba Communication Ability: Effective Visual Impairment: No Limitations Clam Grower Required: No Beliefs That Will Affect Care: None marital status: Current Living Situation: Spouse Current Living Situation Comment: AND 3 ADULT CHILDREN 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 Other Information That Helps Us Care for You: No Feels Safe at Home: Yes Safety Concerns: Feels Safe At This Time Seatbelt Use: always Assistive Devices: Denture - Lower and Glasses Assistive Devices Comment: Partial lower Review of Systems Constitutional: no fever and no chills Eyes: as per Subjective / HPI Ear, Nose, Mouth, Throat: no hearing loss Respiratory: no cough and no dyspnea Cardiovascular: no chest pain and no palpitations Gastrointestinal: no nausea and no vomiting Genitourinary: + dysuria Musculoskeletal: + neck pain; no myalgia Integumentary: no rash and no lesions Neurologic: as per Subjective / HPI, + localized weakness and + headache(s); no syncope and no abnormal speech Psychiatric: no depression and no anxiety Hematologic / Lymphatic: no easy bleeding and no easy bruising Exam (Neuro) Constitutional: well developed and well nourished; no acute distress Eyes: normal visual johnson by confrontation, PERRL, normal accommodation and EOM intact bilaterally; no fundoscopic abnormality, no nystagmus and no papilledema Cardiovascular: Vessels: normal carotid upstroke; no carotid bruit Neurologic: Oriented to:: Person, Place and Time Memory: Short Term Intact and Remote Intact Attention: Span Intact and Concentration Intact Language: Naming Objects and Repeating Phrases Speech Fluency: negative Dysarthria Speech Aphasia: negative Aphasia Fund of Knowledge: Current Events, Past History and Vocabulary Cranial Nerves: Normal II (Visual johnson full to confrontation, visual acuity normal), III, IV, (Pupils equal round reactive to light and accommodation, eye movements normal), V (Facial sensation intact), VII (There is no facial droop or weakness), VIII (Hearing intact), IX, X (Palate elevates to midline), XI (Shoulder shrug intact) and XII (Tongue prot rudes to midline) Motor Strength: Normal Lower Extremities and Normal Upper Extremities; negative Pronator Drift Motor Tone: Normal Lower Extremities and Normal Upper Extremities Muscle Bulk/Involuntary Movements: No Involuntary Movements; negative Muscle Atrophy Sensation: Light Touch Intact, Pain/Temperature Intact, Vibration Intact and Proprioception Intact Coordination: Normal; negative Limited Balance, Dysdiadochokinesia, Finger-Nose Abnormal and Heel-Stroud Abnormal Deep Tendon Reflexes: Rt Triceps: 2+, Lt Triceps: 2+, Rt Biceps: 2+, Lt Biceps: 2+, Rt Brachioradialis: 2+, Lt Brachioradialis: 2+, Rt Patellar: 2+, Lt Patellar: 2+, Rt Ankle: 2+ and Lt Ankle: 2+ Special Tests: negative Babinski Present Gait: Normal Station and Gait Results & Data ([facility]) Vital Signs (Past 12 Hours) Vital Signs Temp Pulse Pulse Resp BP Pulse Ox 08/16/20 08:00 91 H 08/16/20 03:03 36.8 C 74 19 149/80 H 99 Laboratory Results WBC 4.41, hemoglobin 14.4, hematocrit 42.2, platelet count 370, sodium 141, potassium 4.0, BUN 19, creatinine 0.76, glucose 99, triglycerides 106, cholesterol 230, LDL 155, VLDL 21, HDL [address] of the head negative for acute process. MRI of the brain reveals a small 4 mm acute infarct within the posterior right frontal lobe and 2 additional punctate infarcts within the right occipital lobe. There is evidence of chronic small vessel ischemic change as well. An MRI of the cervical spine reveals mild multilevel degenerative changes without evidence of severe or significant central canal stenosis. No spinal cord signal abnormality identified. MRA of the head unremarkable, no aneurysm or occlusion. Carotid ultrasound negative for significant stenosis or atherosclerotic plaque. Antegrade flow for both vertebral arteries noted. The above findings were identified by the interpreting radiologist. I reviewed the images as well and agree. Electrocardiogram reveals a normal sinus rhythm, 86 bpm. Coding Level of Care Code 83907 Initial Inpt Care Lvl 3 Diagnoses CVA (cerebral vascular accident) I63.9
--- NOTE | 2020-08-16 13:34 | Electrocardiogram Report ---
Test Reason : Blood Pressure : / mmHG Vent. Rate : 086 BPM Atrial Rate : 086 BPM P-R Int : 146 ms QRS Dur : 084 ms QT Int : 370 ms P-R-T Axes : 058 -23 030 degrees QTc Int : 442 ms Normal sinus rhythm Moderate voltage criteria for LVH, may be normal variant Borderline ECG When compared with ECG of 25-JUN-2020 12:08, No significant change was found Confirmed by Thomas Wilder ([id number]) on 08/16/2020 1:34:09 PM Referred By: Confirmed By:Zachery Wilder
[2020-08-16] MEDS ORDERED: ATORVASTATIN 40 MG TAB PO ONE (14:32)
--- NOTE | 2020-08-16 15:07 | XCELERA ---
[id number]
[2020-08-16] MEDS ORDERED: STROKE PATIENT DISCHARGE STA (16:03)
--- NOTE | 2020-08-16 16:05 | Discharge Summary ---
Date of Service August 16, 2020 Admission HPI Per Admitting Provider Linda Arreguin is a 70 year old female who presents to the ER with left arm weakness. This started yesterday with intermittent left hand weakness with possible tingling sensation in her fingers. Episodes would last for 5 minutes and occurred 4-5 times yesterday. She underwent lithotripsy 3 days ago and has been on ciprofloxacin, therefore she called her urologist office yesterday due to concern the ciprofloxacin was causing her left hand symptoms and was switched to Bactrim although she is yet to pick this up. Around 1pm today her whole left arm went sudden weak lasting approximately 30 minutes. Completely resolved by the time she came to the ER. No speech, hearing, vision, facial weakness noted. No fever/chills. She reports a longer history of "migraine" headaches. These have been going on for 2 months with no history prior to this. She reports flashing lights in both eyes followed by a bilateral aching frontal headache which is not pulsating but constant. She treats this with acetaminophen and episode last around 2 hours. For the past 2 weeks she has also been seeing a chiropractor for right sided neck pain which has gradually been getting worse over the time without any sensory radiation down her arm. She notes no history of cervical radicular symptoms. Stroke risk - non-smoker, no hypertension, no prior VT or CVA, no hyperlipidemia. In the ER she underwent CT head with no acute intracranial abnormality. Unable to have CTA due to anaphylaxis to IV contrast previously. No telestroke was performed due to complete resolution of symptoms. Given neck pain and intermittent nature of symptoms she was kept in ER to perform further workup to see if she could be discharged from the ER with MRI/MRA head, MRI cervical spine to r/o radicular pathology and carotid US. Lorazepam ordered due to severe claustrophobia. Subsequent MRI showed acute CVA and she was referred to medicine for admission and ongoing management of such. Principal Diagnosis Pt states she feels at her usual. She has had no return of LUE weakness. No further headache. Pt denies fever, SOB, chest pain, abd pain, n/v/c/d, LE pain or swelling. Tolerating PO without issue. Discharge Exam Constitutional WD/WN, vitals as above Eyes normal visual johnson by confrontation and + anicteric sclerae Neck normal visual inspection and trachea midline Respiratory normal respiratory effort, lungs clear to auscultation Cardiovascular Rate/Rhythm: regular rate and regular rhythm Gastrointestinal (Abdomen) Inspection/Auscultation: abdomen not distended Percussion/Palpation: abdomen soft; abdomen nontender Musculoskeletal Head/Neck/Chest: normocephalic and head atraumatic Skin no rashes, warm and dry Neurologic awake; not confused Speech / Cognition: normal speech Psychiatric A+Ox3, euthymic affect Discharge Data Allergies Allergy/AdvReac Type Severity Reaction Status Date / Time honey Allergy Unknown SOB,SWELLING Verified 08/12/20 05:51 THROAT ibuprofen Allergy Unknown Unknown Verified 08/12/20 05:51 Iodinated Contrast Media Allergy Unknown Anaphylaxis Verified 08/12/20 05:51 Penicillins Allergy Unknown PASED OUT Verified 08/12/20 05:51 shellfish derived Allergy Unknown Anaphylaxis Verified 08/12/20 05:51 yellow dye Allergy Unknown SIMILAR Unverified 08/12/20 05:51 SYMPTOMS TO ANAPHYLAXIS BUT NOT SEVERE Consultations 08/15/20 15:42 ED Decision to Admit Stat 08/15/20 21:54 Consult Case Management - Discharge Planning Routine Consult Neurology Routine Ordered Studies 08/15/20 14:32 CT head/brain wo con Stat 08/15/20 16:56 MR angio head wo con Stat MR brain wo con Stat MR cervical spine wo con Stat 08/15/20 16:58 US carotid doppler BI Urgent 08/16/20 13:52 MR angio neck wo/w con Routine Hospital Course (1) CVA (cerebral vascular accident): Symptoms of left arm weakness resolved but MRI brain positive for CVA in R frontal and punctate R occipital ASA 324mg PO chew given in ER. Will continue ASA 81mg PO daily. Statin depending on LDL in AM. HbA1C 5.8 lipid panel with TG 106, HDL 54, LDL 155--will start statin given LDL PT/OT evals complete, no issues No need for speech consult Neurology recs for aspirin 81mg (pt not taking prior), statin, 30 event monitor ECHO noted for severe LVH, EF 65-70% MRA neg Carotid dopplers neg (2) Left arm weakness: As above. No cervical spine pathology noted to be causing this despite Hx neck pain and frontal headaches Noted for posterior disc osteophytes at C5-6, C6-7, neg for severe stenosis (3) Osteoporosis: Continue vitamin D supplementaiton (4) GERD (gastroesophageal reflux disease): Switch omeprazole for pantoprazole per hospital formulary (5) Nephrolithiasis: s/p lithotripsy and left stent placement on 08/12 Continue outpatient Bactrim (6) Hyperparathyroidism: Noted history of such. (7) DVT prophylaxis: Lovenox 40mg SQ daily Total Time Total Time Spent Total Time Spent (In Minutes): >30 Total Time Includes: Examination of the Patient, Discharge Planning, Medication Reconciliation, Communication With Other Providers and Other Discharge Plan Discharge Items Patient Disposition: Home - Self-Care Reason For Visit: CVA Discharge Diagnosis: Stroke (CVA) Activity: Resume your previous activity Non-emergency contact: Primary Care Provider Call non-emergency contact if: you have any medication questions and your symptoms worsen Follow-up/Referrals: Patricia Elias MD [Primary Care Provider] - 08/20/20 10:20 am (f/u in 1 week) Diet: Heart Healthy Addtl Attending Provider Instructions: You have been started on a cholesterol medication to help prevent future strokes. Some people do not tolerate these medications in the form of muscle aches, cramping, or general pain. To help prevent this, you should start taking a supplement called CoQ10. You should start taking CoQ10 200mg per day. CoQ10 comes in 2 forms: ubiquinOL and ubiquinONE. Ubiquinol is the active and best form to take as it is already ready for your body to use. It will absorb better than ubiquinone. Due to this, ubiquinol can be a bit more expensive than ubiquinone, but it will be more effective for you to take the more expensive version. You can find this at most [employer], [employer], [employer], etc. You should take this with some sort of fat for best absorption: dairy products, olive oil, avocados will work for this. You are taking a few supplements that can RARELY cause liver issues. Adding a statin (cholesterol medication) can increase that risk. Tumeric and black cohosh are very rarely associated with liver failure, but if there is an issue with labs related to your liver, you might consider stopping one or both of these. If you stop black cohosh abruptly, you could have a rebound of your hot flashes. You may want to taper off of black cohosh as we discussed. You could try chasteberry for your hot flashes. This is not likely to affect your liver. Pending Studies at Discharge: Yes Studies:: A1c Stand-Alone Forms: My [facility], Smoking Cessation Medications and DC Order Prescriptions: New aspirin 81 mg Tablet,Delayed Release (Dr/Ec) 81 mg PO QAM Qty: 30 RF: 0 atorvastatin 40 mg tablet 40 mg PO DAILY Qty: 30 RF: 0 Continued omeprazole 20 mg capsule,delayed release(DR/EC) 20 mg PO HS Qty: 90 RF: 1 sulfamethoxazole-trimethoprim [Bactrim DS] 800-160 mg tablet 1 tab PO BID 3 Days Qty: 6 RF: 0 acetaminophen-codeine 300-30 mg tablet 1 tab PO Q8H PRN (Reason: Pain) RF: 0 cholecalciferol (vitamin D3) [Vitamin D3] 1,000 unit Tablet 2,000 unit PO QAM Qty: 30 RF: 0 No Action Co Q-10 100 mg capsule 100 mg PO BID Qty: 60 RF: 5 Discharge Orders: Discharge Order (Routine); Ordered 08/16/20 Ordered By: Kendy Moss/Other Patient Handouts: Stroke Prevention Activity Admission Data Admit Date/Time: 08/15/20 20:05 Attending Provider: Kendy Magallon Admit Provider: Silvestre Saavedra Primary Care Provider: Patricia Elias Other Providers: Silvestre Saavedra ; Jeff Mcdonough Other Interventions: Discharge Summary Assessment (RN) Last Done: 08/16/20 16:06 Coding Level of Care Code D/C Day Management >30 mins Diagnoses CVA (cerebral vascular accident) I63.9 Left arm weakness R29.898 Osteoporosis M81.0 GERD (gastroesophageal reflux disease) K21.9 Nephrolithiasis N20.0 Hyperparathyroidism E21.3 DVT prophylaxis Z29.9
[2020-08-16] MEDS ORDERED: LORazepam 1 MG/2 ML VIAL IV PRN (16:15)
--- NOTE | 2020-08-16 16:17 | Pharmacy Report ---
Pharmacist Stroke Counseling - Date of Service August 16, 2020 - Scope: Pharmacy has been consulted to provide medication discharge counseling for this patient admitted with [ischemic stroke] [hemorrhagic stroke] [transient ischemic attack] as per the Pharmacist Discharge Counseling for Stroke Patients [facility] [employer]. - Medications on Discharge: Home Medications Medication Instructions Recorded Confirmed acetaminophen-codeine 1 tab PO Q8H PRN 08/15/20 08/15/20 New Rx's Medication Instructions Recorded cholecalciferol (vitamin D3) 2,000 unit PO QAM #30 tab 06/12/18 [Vitamin D3] omeprazole 20 mg capsule,delayed 20 mg PO HS #90 cap 04/13/20 release sulfamethoxazole 800 1 tab PO BID 3 Days #6 tab 08/14/20 mg-trimethoprim 160 mg tablet aspirin 81 mg PO QAM #30 tab 08/16/20 atorvastatin 40 mg PO DAILY #30 tab 08/16/20 - Action: The above medications, specifically ones for stroke treatment/prophylaxis, have been reviewed in detail with the patient and/or patient motor vehicle representative(s) prior to discharge. This includes indication, common adverse reactions, drug interactions, and medication administration. Medication counseling has been employed using the teach-back method to ensure understanding. - Outcome: The patient and/or patient motor vehicle representative(s) have demonstrated understanding of the medications. Thank you for allowing pharmacy to be involved in the care of this patient. Please call [phone] with any additional questions
[2020-08-16] MEDS ORDERED: LORazepam 2 MG/4 ML VIAL ONE (16:20)
[2020-08-16] MEDS ORDERED: LORazepam 1 MG/2 ML VIAL IV STA (16:54)
[2020-08-16] MEDS ORDERED: GADOXETATE DISODIUM IV ONE (18:59)
--- NOTE | 2020-08-16 19:29 | Magnetic Resonance Report ---
MR angio neck wo/w con HISTORY: 70 years-old Female right hemispheric stroke, r/o dissection acute strokelike symptoms. COMPARISON: MRI brain 08/15/2020 TECHNIQUE: MRA of the neck was obtained both with and without the use of 6.0 mL Gadavist utilizing 3- D [id number] sequencing with MIP reformats. All measurements were obtained according to NASCET cr iteria. FINDINGS: Motion degraded exam. Cardiomegaly. There is a suggested small hiatal hernia. Unremarkable thoracic aortic arch. Patency of the innominate and imaged subclavian arteries. The comm on carotid arteries are widely patent. Minimal luminal narrowing of the proximal cervical segments of the internal carotid arteries is likely secondary to atherosclerosis. The internal carotid arteries are otherwise widely patent. Codominant and patent vertebral arteries. No aneurysm, dissection, high- grade stenosis or proximal branch occlusion. IMPRESSION: Unremarkable MRA of the neck. ACT 112: Negative or not required by law. The above report was generated using voice recognition software. It may contain grammatical, syntax o r spelling errors. Electronically signed by: Gordon Arnett M.D. 08/16/2020 7:27 PM
[2020-08-17 06:02] LABS: Estimated Average Glucose 120 mg/dl; Hemoglobin A1C 5.8 % (4.5-5.6)
== END 2020-08-16 20:06 | disposition home or self-care (01) ==
LOC: ED 14:05 → 2S 20:05 → INTOOBSV 20:05 → SUATTDRO 20:05 → 2S 20:33

== ENCOUNTER 2024-10-08 12:17 | Observation (INO) ==
--- NOTE | 2024-10-08 12:38 | Emergency Department Note ---
Impression & Plan Hypoxia, Acute dyspnea, Phrenic nerve paralysis ED Provider Note HISTORY OF PRESENT ILLNESS: Patient is a 74-year-old female presenting with hypoxia. Patient presents from the outpatient surgery center after having her right shoulder replaced. In the PACU, the patient was persistently hypoxic when attempted to wean off of supplemental oxygen. Her sats were 84 to 90% postoperatively. She does not wear any supplemental oxygen at baseline. She did receive a block for her left shoulder as part of her anesthetic. Patient denies any chest pain or shortness of breath. Patient is lethargic and slow to answer questions. ROS: as above PHYSICAL EXAM: Constitutional: Patient appears in no acute distress. HENT: Head: Normocephalic and atraumatic. Eyes: EOMI, PERRL Mouth/Throat: Mucous membranes moist. Neck: Trachea midline. Neck supple. Cardiovascular: RRR, No murmurs, rubs or gallops. Intact distal pulses. Pulmonary/Chest: No respiratory distress. Breath sounds clear and equal bilaterally. Hypoxic on 2 L nasal cannula with sats of 86%. Increased to 4 L nasal cannula. Abdominal: Abdomen soft, no tenderness, rebound or guarding. Musculoskeletal: No edema, tenderness or deformity noted. Skin: Warm and dry. No rash, erythema, pallor or cyanosis Psychiatric: Appropriate mood and affect for situation. Neurological: Alert but lethargic and slow to respond. CN II-XII grossly intact, moving all extremities equally and fully. MDM: - Vitals signs showed hypoxia - History obtained via patient. History as above. - Chronic conditions affecting care: hyperparathyroidism; GERD; HLD; HTN - Differential diagnoses include, but are not limited to: Congestive heart failure; acute coronary syndrome; COPD/asthma exacerbation; pulmonary edema; pulmonary embolism; pneumonia; pneumothorax; viral syndrome - Order placed for continuous cardiac monitoring. At this time, monitor showed rate of 81 bpm with normal sinus rhythm, per my interpretation. - External medical records reviewed. Anesthesia progress note from today in the outpatient surgery center was reviewed. Patient was seen by the anesthesiologist for hypoxia in the PACU. When her oxygen was weaned, her sats were 84 to 90%. - EKG image interpreted by myself showed normal sinus rhythm. Rate 66 bpm. QT 450. No acute ischemic changes. Noted to have some T wave inversions in V1 through V3. - Laboratory workup interpreted by myself showed normal WBC; normal PT/INR; normal BNP; stable electrolytes; normal troponin - UA negative for infection - VBG showed acidosis (pH 7.3) - CXR image reviewed by myself shows hemidiaphragm elevation on the right, per my interpretation. 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 - Discussed case with anesthesiologist on patient's post op case, Dr. Watson, at 13:37. Reports that patient was given 0.5 mL bupivicaine with exparel, which lasts about 24-72 hours in length. Recommended that patient would need admission for observation given her hypoxia. Reports that patient is normally do well postop day 1 if they are admitted for their hypoxia. - Discussion was had with case therapist about patient's case and need for admission - Hospitalist consulted for admission - Patient admitted to [facility] for further evaluation and management. ASSESSMENT AND PLAN: Diagnosis: Hypoxia; acute dyspnea; phrenic nerve paralysis Plan: Admit Past Med/Surg History Problem List (Updated 10/08/24 @ 14:06 by Shamika Melendez MD) Phrenic nerve paralysis (Acute) Acute dyspnea (Acute) Hypoxia (Acute) S/P right rotator cuff repair Operation Date: 10/08/24 07:00 Actual Procedures p Right Shoulder Arthroscopy, Massive Rotator Cuff Repair, Subacromial Decompression, Biceps Tenodesis(Right) - Balta Sue MD Complexity modifier: Two separate double row rotator cuff repairs with 9 anchors, doubling the usual time for a standard rotator cuff repair. Closed fracture of distal clavicle (Acute ~05/20/24) Subscapularis avulsion Supraspinatus tendon rupture Traumatic complete tear of right rotator cuff Post herpetic neuralgia Herpes zoster Left wrist pain (Acute) H/O: stroke HTN, goal below 140/90 Calcium nephrolithiasis Osteoarthritis Kidney stones Calculus of left ureter Nephrolithiasis Fibrocystic breast disease GERD without esophagitis Hearing loss Hypercalcemia Hypercholesterolemia Osteoporosis Vitamin D deficiency Hyperparathyroidism Abnormal CT scan, colon GERD (gastroesophageal reflux disease) Medical History History of shingles (2022) History of stroke (2020) Hx of gastroesophageal reflux (GERD) History of COVID-19 Arthritis Raynauds disease Borderline high blood pressure Temporomandibular joint disorder Hypercholesterolemia Osteoporosis Vitamin D deficiency Surgical History Hx of cataract extraction S/P cystoscopy with ureteral stent placement History of tooth extraction History of lithotripsy H/O tubal ligation History of parathyroid surgery History of kidney surgery History of ankle surgery History of colonoscopy History of open reduction and internal fixation (ORIF) procedure H/O: hysterectomy Family History Father Myocardial infarction Mother Breast cancer Unknown Cancer Other Heart disease No family history of adverse response to anesthesia Denies family history of Ovarian cancer Prostate cancer Colorectal cancer Social History Smoking Status: Never smoker Second Hand Exposure: No; Do You Dip or Chew Tobacco: No; Hx Alcohol Use: No Hx Substance Use: No Preferred Language: Telugu Communication Ability: Effective Visual Impairment: No Limitations Hearing Ability: Normal Specialty Transformer Assembler Required: No Beliefs That Will Affect Care: None marital status: / Current Living Situation: Family Current Living Situation Comment: 2 ADULT CHILDREN 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 Feels Safe at Home: Yes Childhood Exposure to Second-Hand Smoke: No Diet: regular Diet Comment: regular Dental Care, Regularly: Yes Physical Activity Frequency: Daily Seatbelt Use: always Sunscreen Use: Yes Assistive Devices: Denture - Lower, Glasses and Hearing Aid - Bilateral Allergies Allergies Allergy/AdvReac Type Severity Reaction Status Date / Time honey Allergy Unknown SOB,SWELLING Verified 10/08/24 06:23 THROAT Iodinated Contrast Media Allergy Unknown Anaphylaxis Verified 10/08/24 06:23 Penicillins Allergy Unknown PASED OUT Verified 10/08/24 06:23 shellfish derived Allergy Unknown Anaphylaxis Verified 10/08/24 06:23 yellow dye Allergy Unknown SIMILAR Verified 10/08/24 06:23 SYMPTOMS TO ANAPHYLAXIS BUT NOT SEVERE Home Meds Home Medications Medication Instructions Recorded Confirmed acetaminophen 300 mg-codeine 30 mg 1 tab PO UD PRN kidney stones 08/01/23 10/08/24 tablet coenzyme Q10 100 mg capsule 200 mg PO QAM 10/05/23 10/08/24 omeprazole 20 mg capsule,delayed 20 mg PO HS 09/25/24 10/08/24 release Previous Rx's Medication Instructions Recorded aspirin 81 mg tablet,delayed 81 mg PO QAM #30 tabs 08/16/20 release chlorthalidone 25 mg tablet 12.5 mg (1/2 x 25 mg) PO QAM #45 06/10/24 tabs lisinopril 5 mg tablet 5 mg PO QAM #90 tabs 06/10/24 diazepam 2 mg tablet 2 mg PO ONCE PRN anxiety #2 tabs 07/08/24 ondansetron 4 mg disintegrating 4 mg PO Q6H PRN nausea and 10/08/24 tablet vomiting #10 tabs oxycodone 5 mg tablet 5 - 10 mg (1 - 2 x 5 mg) PO Q6H 10/08/24 PRN post operative pain #18 tabs Results & Data (ED) Vital Signs Vital Signs - 24 hr 10/08/24 12:10 10/08/24 12:10 10/08/24 12:28 Temperature 36.4 C L Temperature Source Oral Pulse Rate 75 81 Pulse Rate from SpO2 Sensor Respiratory Rate 20 Respiratory Effort / Characteristics Non-Labored Spontaneous Non-Labored Spontaneous Respiratory Depth Normal Normal Respiratory Pattern Regular Regular Blood Pressure 135/72 Blood Pressure Mean 93 Pulse Oximetry 96 Oxygen Delivery Method Room Air Oxygen Flow Rate Sepsis Recent Fever Within 48 Hours No Sepsis New/Unexplained Change in Mental Status N/A Sepsis Action Taken by Nursing No Action Required 10/08/24 12:39 Temperature Temperature Source Pulse Rate 73 Pulse Rate from SpO2 Sensor 74 Respiratory Rate 15 Respiratory Effort / Characteristics Respiratory Depth Respiratory Pattern Blood Pressure 135/72 Blood Pressure Mean 93 Pulse Oximetry 97 Oxygen Delivery Method Nasal Cannula Oxygen Flow Rate 2 Sepsis Recent Fever Within 48 Hours Sepsis New/Unexplained Change in Mental Status Sepsis Action Taken by Nursing Laboratory Data 10/08/24 12:40 10/08/24 12:40 Lab Results 10/08/24 10/08/24 10/08/24 Range/Units 12:40 12:54 13:03 WBC 7.48 (4.8-10.8) K/ul RBC 4.11 L (4.20-5.40) M/uL Hgb 12.7 (12.0-16.0) g/dl Hct 38.4 (37.0-47.0) % MCV 93.4 (80.0-100.0) fL MCH 30.9 (25.0-34.0) pg MCHC 33.1 (32.0-36.0) g/dL RDW Std Deviation 42.6 (36.4-46.3) fL RDW Coeff of Rowena 12.4 (11.5-14.5) % Plt Count 287 (130-400) K/uL MPV 9.5 (9.4-12.4) fL Immature Gran % (Auto) 0.5 % Neut % (Auto) 90.2 % Lymph % (Auto) 7.1 % [place] % (Auto) 1.7 % Eos % (Auto) 0.1 % Baso % (Auto) 0.4 % Neut # (Auto) 6.74 H (1.40-6.50) K/uL Lymph # (Auto) 0.53 L (1.20-3.40) K/uL [place] # (Auto) 0.13 (0.11-0.59) K/uL Eos # (Auto) 0.01 (0.00-0.50) K/uL Baso # (Auto) 0.03 (0.00-0.20) K/uL Immature Gran # (Auto) 0.04 (0.01-0.20) K/uL PT 10.6 (9.0-12.0) Seconds INR 1.0 (0.9-1.1) VBG pH 7.30 L (7.36-7.41) VBG pCO2 50 (38-50) mmHg VBG pO2 35 mmHg VBG HCO3 25 mmol/L VBG O2 Saturation < 60.0 % VBG Base Excess -2.4 mEq/L Sodium 140 (136-145) mmol/L Potassium 3.8 (3.5-5.1) mmol/L Chloride 109 H (98-107) mmol/L Carbon Dioxide 26 (21-32) mmol/L Anion Gap 5 (3-11) BUN 30 H (6-23) mg/dl Creatinine 0.88 (0.6-1.2) mg/dl Est Cr Clr Drug Dosing 52.5 ml/min eGFR 68.49 BUN/Creatinine Ratio 34.1 H (10-20) Glucose 132 H (70-99(Fasting)) mg/dl Calcium 9.7 (8.6-10.3) mg/dl Magnesium 1.8 (1.7-2.4) mg/dl Total Bilirubin 0.4 (0.2-1.0) mg/dl AST 20 (13-39) U/L ALT 17 (7-52) U/L Alkaline Phosphatase 113 H (34-104) U/L Troponin I High Sens 7.1 (0-14) pg/ml B-Natriuretic Peptide 35 (0-100) pg/ml Total Protein 7.1 (6.0-8.3) gm/dl Albumin 4.4 (3.4-5.0) gm/dl Globulin 2.7 (2.5-4.0) gm/dl Albumin/Globulin Ratio 1.6 (0.9-2) Urine Color Yellow Urine Appearance Clear (Clear) Urine pH 5.5 (4.5-7.5) Ur Specific [place] 1.009 (1.000-1.030) Urine Protein Negative (Negative) Urine Glucose (UA) Negative (Negative) Urine Ketones Negative (Negative) Urine Blood Negative (Negative) Urine Nitrite Negative (Negative) Urine Bilirubin Negative (Negative) Urine Urobilinogen Negative (Negative) Ur Leukocyte Esterase Negative (Negative) SARS-CoV-2 (PCR) (Negative) Influenza Type A (PCR) (Neg) Influenza Type B (PCR) (Neg) RSV (RT-PCR) (Neg) 10/08/24 Range/Units 13:15 WBC (4.8-10.8) K/ul RBC (4.20-5.40) M/uL Hgb (12.0-16.0) g/dl Hct (37.0-47.0) % MCV (80.0-100.0) fL MCH (25.0-34.0) pg MCHC (32.0-36.0) g/dL RDW Std Deviation (36.4-46.3) fL RDW Coeff of Rowena (11.5-14.5) % Plt Count (130-400) K/uL MPV (9.4-12.4) fL Immature Gran % (Auto) % Neut % (Auto) % Lymph % (Auto) % [place] % (Auto) % Eos % (Auto) % Baso % (Auto) % Neut # (Auto) (1.40-6.50) K/uL Lymph # (Auto) (1.20-3.40) K/uL [place] # (Auto) (0.11-0.59) K/uL Eos # (Auto) (0.00-0.50) K/uL Baso # (Auto) (0.00-0.20) K/uL Immature Gran # (Auto) (0.01-0.20) K/uL PT (9.0-12.0) Seconds INR (0.9-1.1) VBG pH (7.36-7.41) VBG pCO2 (38-50) mmHg VBG pO2 mmHg VBG HCO3 mmol/L VBG O2 Saturation % VBG Base Excess mEq/L Sodium (136-145) mmol/L Potassium (3.5-5.1) mmol/L Chloride (98-107) mmol/L Carbon Dioxide (21-32) mmol/L Anion Gap (3-11) BUN (6-23) mg/dl Creatinine (0.6-1.2) mg/dl Est Cr Clr Drug Dosing ml/min eGFR BUN/Creatinine Ratio (10-20) Glucose (70-99(Fasting)) mg/dl Calcium (8.6-10.3) mg/dl Magnesium (1.7-2.4) mg/dl Total Bilirubin (0.2-1.0) mg/dl AST (13-39) U/L ALT (7-52) U/L Alkaline Phosphatase (34-104) U/L Troponin I High Sens (0-14) pg/ml B-Natriuretic Peptide (0-100) pg/ml Total Protein (6.0-8.3) gm/dl Albumin (3.4-5.0) gm/dl Globulin (2.5-4.0) gm/dl Albumin/Globulin Ratio (0.9-2) Urine Color Urine Appearance (Clear) Urine pH (4.5-7.5) Ur Specific [place] (1.000-1.030) Urine Protein (Negative) Urine Glucose (UA) (Negative) Urine Ketones (Negative) Urine Blood (Negative) Urine Nitrite (Negative) Urine Bilirubin (Negative) Urine Urobilinogen (Negative) Ur Leukocyte Esterase (Negative) SARS-CoV-2 (PCR) NEGATIVE (Negative) Influenza Type A (PCR) Negative (Neg) Influenza Type B (PCR) Negative (Neg) RSV (RT-PCR) Negative (Neg) Imaging Data Radiologist's Impression: Chest X-Ray 10/08/24 12:39 XR chest 1V portable CLINICAL HISTORY: hypoxia post op COMPARISON STUDY: 08/15/2020 FINDINGS: There is a small hiatal hernia. There is interval moderate elevation of the right hemidiaphragm. There is stranding opacity at the right base, likely atelectasis. No other consolidation or pleural effusion. No pneumothorax. IMPRESSION: Interval moderate elevation of the right hemidiaphragm with likely atelectasis at the right lung base. ACT 112: Negative or not required by law. Electronically signed by: Nirav Cordova M.D. 10/08/2024 1:46 PM Discharge Plan Visit Data Chief Complaint: Respiratory Problems Stated Complaint: HYPOXIA ED Provider: Shamika Melendez Discharge Problem: Hypoxia, Acute dyspnea, Phrenic nerve paralysis Forms Stand Alone Forms: IT'SUGAR Prescriptions Prescriptions: No Action acetaminophen-codeine 300-30 mg tablet 1 tab PO UD PRN (Reason: kidney stones) Rx Instructions: 10/08-no fill history available unable to verify diazepam 2 mg tablet 2 mg PO ONCE PRN (Reason: anxiety) Qty: 2 0RF Patient Comments: patient states she never used it Rx Instructions: take one tab 1 hour prior to MRI; repeat x1 if needed chlorthalidone 25 mg tablet 12.5 mg PO QAM Qty: 45 3RF lisinopril 5 mg tablet 5 mg PO QAM Qty: 90 3RF Rx Instructions: TAKE 1 TABLET BY MOUTH EVERY DAY aspirin 81 mg Tablet,Delayed Release (Dr/Ec) 81 mg PO QAM Qty: 30 0RF omeprazole 20 mg capsule,delayed release(DR/EC) 20 mg PO HS Rx Instructions: TAKE 1 CAPSULE BY MOUTH EVERYDAY AT BEDTIME ondansetron 4 mg tablet,disintegrating 4 mg PO Q6H PRN (Reason: nausea and vomiting) Qty: 10 0RF oxycodone 5 mg tablet 5 - 10 mg PO Q6H MDD 6 tablets PRN (Reason: post operative pain) Qty: 18 0RF coenzyme Q10 100 mg capsule 200 mg PO QAM Referrals Referrals: Patricia Elias MD [Primary Care Provider] -
[2024-10-08 12:58] LABS: Base Excess VBG -2.4 mEq/L; HCO3 VBG 25 mmol/L; Oxygen Saturation VBG < 60.0 %; PCO2 VBG 50 mmHg (38-50); PO2 VBG 35 mmHg
[2024-10-08 13:01] LABS: Hematocrit (blood only) 38.4 % (37.0-47.0); Hemoglobin 12.7 g/dl (12.0-16.0); Mean Corpuscular Hemoglobin 30.9 pg (25.0-34.0); Mean Corpuscular Hgb Conc 33.1 g/dL (32.0-36.0); Mean Corpuscular Volume 93.4 fL (80.0-100.0); Mean Platelet Volume 9.5 fL (9.4-12.4); Platelet Count 287 K/uL (130-400); RDW Coefficient of Variation 12.4 % (11.5-14.5); RDW Standard Deviation 42.6 fL (36.4-46.3); Red Blood Count 4.11 M/uL (4.20-5.40); White Blood Count 7.48 K/ul (4.8-10.8)
[2024-10-08 13:13] LABS: Albumin Level 4.4 gm/dl (3.4-5.0); Bilirubin,Total 0.4 mg/dl (0.2-1.0); Calcium 9.7 mg/dl (8.6-10.3); Magnesium 1.8 mg/dl (1.7-2.4); Potassium 3.8 mmol/L (3.5-5.1)
[2024-10-08 13:16] LABS: Appearance Urine Clear (Clear); Bilirubin Urine Negative (Negative); Blood Urine Negative (Negative); Color Urine Yellow; Glucose Urine UA Negative (Negative); Ketones Urine Negative (Negative); Leukocyte Esterase Urine Negative (Negative); Nitrite Urine Negative (Negative); Protein Urine Negative (Negative); Specific Gravity Urine 1.009 (1.000-1.030); Urobilinogen Urine Negative (Negative); pH Urine 5.5 (4.5-7.5)
[2024-10-08 13:17] LABS: Basophils # (auto) 0.03 K/uL (0.00-0.20); Basophils % (auto) 0.4 %; Eosinophils # (auto) 0.01 K/uL (0.00-0.50); Eosinophils % (auto) 0.1 %; Immature Granulocytes # (auto) 0.04 K/uL (0.01-0.20); Immature Granulocytes % (auto) 0.5 %; Lymphocytes # (auto) 0.53 K/uL (1.20-3.40); Lymphocytes % (auto) 7.1 %; Monocytes # (auto) 0.13 K/uL (0.11-0.59); Monocytes % (auto) 1.7 %; Neutrophils # (auto) 6.74 K/uL (1.40-6.50); Neutrophils % (auto) 90.2 %
[2024-10-08 13:19] LABS: Albumin Globulin Ratio 1.6 (0.9-2); BUN Creatinine Ratio 34.1 (10-20); Creatinine Clr Calc Pharmacy 52.5 ml/min; Globulin 2.7 gm/dl (2.5-4.0); Total Protein 7.1 gm/dl (6.0-8.3)
[2024-10-08 13:23] LABS: Troponin I High Sensitivity 7.1 pg/ml (0-14)
[2024-10-08 13:40] LABS: Prothrombin Time 10.6 Seconds (9.0-12.0)
--- NOTE | 2024-10-08 13:47 | XRay Report ---
XR chest 1V portable CLINICAL HISTORY: hypoxia post op COMPARISON STUDY: 08/15/2020 FINDINGS: There is a small hiatal hernia. There is interval moderate elevation of the right hemidiaph ragm. There is stranding opacity at the right base, likely atelectasis. No other consolidation or ple ural effusion. No pneumothorax. IMPRESSION: Interval moderate elevation of the right hemidiaphragm with likely atelectasis at the [facility] lung base. ACT 112: Negative or not required by law. Electronically signed by: Nirav Cordova M.D. 10/08/2024 1:46 PM
[2024-10-08 14:07] LABS: Influenza A virus by PCR Negative (Neg); Influenza B virus by PCR Negative (Neg); RSV by PCR Negative (Neg); SARS CoV2 RNA(COVID-19) Ceph NEGATIVE (Negative)
--- NOTE | 2024-10-08 14:42 | History & Physical Report ---
Date of Service October 08, 2024 Assessment & Plan (1) Phrenic nerve paralysis: (2) Hypoxia: (3) S/P right rotator cuff repair: (4) H/O: stroke: (5) HTN, goal below 140/90: Plan #Hypoxia - appears consistent with scalene block and diaphragmatic paralysissupportive care. Fortunately asymptomatic and easy to supply supplemental oxygen to. Continue supportive care, anticipate improvementHome once hypoxia is resolved. Obviously should she develop any new or different symptoms, would change the plan as appropriate #hypertension - continue home chlorthalidone and lisinopril. Follow #history of stroke - we will hold aspirin for tomorrow morning, anticipate resuming at discharge or 10/10 if hospital stay becomes surprisingly prolonged DVT prophylaxisSCDs dispositionobserve on medical, [facility], anticipate rapid improvement in hypoxia and hopefully will be able to go home tomorrow History of Present Illness Chief Complaint: hypoxia post op Primary Care Provider: Patricia Elias MD pleasant 74F had outpt shoulder surgery today. was unable to wean O2. no sob, generally feeling OK. unable to wean O2 so sent to ER. anesthesia d/w ER physician - "Discussed case with anesthesiologist on patient's post op case, Dr. Watson, at 13:37. Reports that patient was given 0.5 mL bupivicaine with exparel, which lasts about 24-72 hours in length. Recommended that patient would need admission for observation given her hypoxia. Reports that patient is normally do well postop day 1 if they are admitted for their hypoxia."She otherwise feels okay. Still is a little bit groggy postanesthesia. Family updated at the bedside as well. Answered all questions to the best my ability Allergies Allergy/AdvReac Type Severity Reaction Status Date / Time honey Allergy Unknown SOB,SWELLING Verified 10/08/24 06:23 THROAT Iodinated Contrast Media Allergy Unknown Anaphylaxis Verified 10/08/24 06:23 Penicillins Allergy Unknown PASED OUT Verified 10/08/24 06:23 shellfish derived Allergy Unknown Anaphylaxis Verified 10/08/24 06:23 yellow dye Allergy Unknown SIMILAR Verified 10/08/24 06:23 SYMPTOMS TO ANAPHYLAXIS BUT NOT SEVERE Home Medications Medication Instructions Recorded Confirmed Type aspirin 81 mg tablet,delayed 81 mg PO QAM #30 tabs 08/16/20 10/08/24 Rx release acetaminophen 300 mg-codeine 30 mg 1 tab PO UD PRN kidney stones 08/01/23 10/08/24 History tablet coenzyme Q10 100 mg capsule 200 mg PO QAM 10/05/23 10/08/24 History chlorthalidone 25 mg tablet 12.5 mg (1/2 x 25 mg) PO QAM #45 06/10/24 10/08/24 Rx tabs lisinopril 5 mg tablet 5 mg PO QAM #90 tabs 06/10/24 10/08/24 Rx diazepam 2 mg tablet 2 mg PO ONCE PRN anxiety #2 tabs 07/08/24 10/08/24 Rx omeprazole 20 mg capsule,delayed 20 mg PO HS 09/25/24 10/08/24 History release ondansetron 4 mg disintegrating 4 mg PO Q6H PRN nausea and 10/08/24 10/08/24 Rx tablet vomiting #10 tabs oxycodone 5 mg tablet 5 - 10 mg (1 - 2 x 5 mg) PO Q6H 10/08/24 10/08/24 Rx PRN post operative pain #18 tabs Past Med/Surg History Problem List Phrenic nerve paralysis (Acute) Acute dyspnea (Acute) Hypoxia (Acute) S/P right rotator cuff repair Operation Date: 10/08/24 07:00 Actual Procedures p Right Shoulder Arthroscopy, Massive Rotator Cuff Repair, Subacromial Decompression, Biceps Tenodesis(Right) - Balta Sue MD Complexity modifier: Two separate double row rotator cuff repairs with 9 anchors, doubling the usual time for a standard rotator cuff repair. Closed fracture of distal clavicle (Acute ~05/20/24) Subscapularis avulsion Supraspinatus tendon rupture Traumatic complete tear of right rotator cuff Post herpetic neuralgia Herpes zoster Left wrist pain (Acute) H/O: stroke HTN, goal below 140/90 Calcium nephrolithiasis Osteoarthritis Kidney stones Calculus of left ureter Nephrolithiasis Fibrocystic breast disease GERD without esophagitis Hearing loss Hypercalcemia Hypercholesterolemia Osteoporosis Vitamin D deficiency Hyperparathyroidism Abnormal CT scan, colon GERD (gastroesophageal reflux disease) Medical History History of shingles (2022) no residual effects History of stroke (2020) "mild" per pt, no residual effects Hx of gastroesophageal reflux (GERD) History of COVID-19 05/2021--mild symptoms, no symptoms now Arthritis Raynauds disease PT DENIES Borderline high blood pressure Temporomandibular joint disorder hx, no clicking or locking Hypercholesterolemia hx Osteoporosis Vitamin D deficiency hx Surgical History Hx of cataract extraction rt/lt S/P cystoscopy with ureteral stent placement 08/12/2020 History of tooth extraction History of lithotripsy H/O tubal ligation History of parathyroid surgery History of kidney surgery LEFT FOR STONE History of ankle surgery RIGHT History of colonoscopy History of open reduction and internal fixation (ORIF) procedure Right leg H/O: hysterectomy Family History Father Myocardial infarction Mother Breast cancer Unknown Cancer Other Heart disease No family history of adverse response to anesthesia Denies family history of Ovarian cancer Prostate cancer Colorectal cancer Social History Smoking Status: Never smoker Second Hand Exposure: No; Do You Dip or Chew Tobacco: No; Hx Alcohol Use: No Hx Substance Use: No Preferred Language: Iranian Communication Ability: Effective Visual Impairment: No Limitations Hearing Ability: Normal Bridge Worker Required: No Beliefs That Will Affect Care: None marital status: / Current Living Situation: Family Current Living Situation Comment: 2 ADULT CHILDREN 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 HEENT normocephalic atraumatic mucous membranes moist. Cardio is regular, lungs are quiet bilaterally no rales rhonchi or wheezes good effort. Right shoulder is dressed. Abdomen is soft nondistended nontender no masses organomegaly. Extremities are without sinus clubbing or edema. Neuro shows no lateralizing signs and no focal deficits. Results & Data Results & Data Vital Signs (Past 12 Hours) Vital Signs Temp Pulse Resp BP Pulse Ox O2 Del Method O2 Flow Rate 10/08/24 12:39 73 15 135/72 97 Nasal Cannula 2 10/08/24 12:28 81 10/08/24 12:10 97.5 F L 75 20 135/72 96 Room Air Code Status & VTE Plan VTE Prophylaxis Plan VTE Prophylaxis will be ordered: Yes PG Care Time/CCT Total # of Minutes Spent Total Time Spent with Patient: Total time spent is greater than 50% in coordination of care (as documented) at patient's floor/unit and/or counseling patient: Coding Level of Care Code 86223 INT INP/OBS CARE 375MIN Diagnoses Phrenic nerve paralysis G56.80 Hypoxia R09.02 S/P right rotator cuff repair Z98.890 H/O: stroke Z86.73 HTN, goal below 140/90 I10
--- NOTE | 2024-10-08 15:48 | Electrocardiogram Report ---
Test Reason : Blood Pressure : */* mmHG Vent. Rate : 66 BPM Atrial Rate : 66 BPM P-R Int : 148 ms QRS Dur : 90 ms QT Int : 450 ms P-R-T Axes : 48 -24 3 degrees QTcB Int : 471 ms Normal sinus rhythm T wave abnormality, consider anterior ischemia Abnormal ECG When compared with ECG of 23-Sep-2024 12:38, Vent. rate has decreased by 41 bpm T wave inversion now evident in Anterior leads Confirmed by Thomas Wilder ([id number]) on 10/08/2024 3:47:43 PM Referred By: REFERRED SELF Confirmed By: Thomas Wilder
[2024-10-08] MEDS ORDERED: ACETAMINOPHEN W/CODEINE #3 1 TAB PO PRN (16:49)
[2024-10-08] MEDS ORDERED: ONDANSETRON 4 MG OD TAB PO PRN (16:49)
[2024-10-08] MEDS ORDERED: MELATONIN 3 MG TAB PO PRN (16:49)
[2024-10-08] MEDS ORDERED: diazePAM 2 MG TABLET PO PRN (16:49)
[2024-10-08] MEDS ORDERED: ONDANSETRON INJ 2 MG/ML 2 ML VIAL IV PRN (16:49)
[2024-10-08] MEDS ORDERED: ALUMINUM/MAGNESIUM SUSP 30 ML UDC PO PRN (16:49)
[2024-10-08] MEDS ORDERED: MoRPHine SULFATE 4 MG/ML 1 ML CARP\\VIAL IV PRN (16:49)
[2024-10-08] MEDS ORDERED: MAGNESIUM HYDROXIDE SUSP 30 ML UDC PO PRN (16:49)
[2024-10-08] MEDS ORDERED: POLYETHYLENE (MIRALAX) 17 GM PACK PO PRN (16:49)
[2024-10-08] MEDS: ACETAMINOPHEN 325 MG TAB PO PRN (20:27)
[2024-10-08] MEDS: PANTOprazole 40 MG TAB PO SCH (20:28)
[2024-10-08 21:02] VITALS: O2SAT 95
[2024-10-09] MEDS: oxyCODONE HCL IR 5 MG TAB (IMMEDIATE RELEASE) PO PRN (03:45)
[2024-10-09 07:26] VITALS: BP 101/65; PULSE 72; RESP 16; TEMP 97.7
--- NOTE | 2024-10-09 08:12 | Hospitalist Progress Note ---
Date of Service October 09, 2024 Assessment & Plan (1) Phrenic nerve paralysis: (2) Hypoxia: (3) S/P right rotator cuff repair: (4) H/O: stroke: (5) HTN, goal below 140/90: Plan #Hypoxia - appears consistent with scalene block and diaphragmatic paralysissupportive care. Fortunately asymptomatic and easy to supply supplemental oxygen to. Continue supportive care, anticipate improvementHome once hypoxia is resolved. Obviously should she develop any new or different symptoms, would change the plan as appropriate #hypertension - continue home chlorthalidone and lisinopril. Follow #history of stroke - we will hold aspirin for tomorrow morning, anticipate resuming at discharge or 10/10 if hospital stay becomes surprisingly prolonged DVT prophylaxisSCDs dispositionobserve on medical, [facility], anticipate rapid improvement in hypoxia and hopefully will be able to go home tomorrow Admission and Anticipated Discharge Date Admission Date: October 08, 2024 Results & Data Results & Data Vital Signs (Past 12 Hours) Vital Signs Temp Pulse Resp BP Pulse Ox O2 Del Method 10/09/24 07:25 36.5 C 72 16 101/65 95 Room Air PG Care Time/CCT Total # of Minutes Spent Total Time Spent with Patient: Total time spent is greater than 50% in coordination of care (as documented) at patient's floor/unit and/or counseling patient: Coding Diagnoses Phrenic nerve paralysis G56.80 Hypoxia R09.02 S/P right rotator cuff repair Z98.890 H/O: stroke Z86.73 HTN, goal below 140/90 I10
[2024-10-09] MEDS: lisinopril 5 MG TAB PO SCH (08:50)
[2024-10-09] MEDS: CHLORTHALIDONE 25 MG TAB PO SCH (08:50)
[2024-10-09] MEDS ORDERED: NON-FORMULARY MEDICATION (Coenzyme Q10 100 mg capsule) PO SCH (09:00)
--- NOTE | 2024-10-09 09:10 | Discharge Summary ---
Discharge Summary Date of Service October 09, 2024 Principal Dx & Hospital Course #1 = Principal Diagnosis (1) Phrenic nerve paralysis: (2) Hypoxia: (3) S/P right rotator cuff repair: (4) H/O: stroke: (5) HTN, goal below 140/90: Plan 74yo female presented for outpatient elective RIGHT shoulder surgery (massive rotator cuff repair, subacromial decompression, biceps tenodesis) was admitted for observation post-operatively due to hypoxia requiring supplemental O2 to maintain saturations. BNP not elevated. CXR w/ moderate elevation R hemidiaphragm w/ atelectasis at the right lung. Discussed w/ anesthesia and patient was given 0.5mL bupivicaine and exparel which lasts about 24-82hrs in length and suspected phrenic nerve paralysis 2nd to nerve block. Patient utilized supplemental O2 and incentive spirometer and titrated to RA. No SOB/fever or hypoxia. On repeat exam, did have continued elevation of R hemidiaphragm but no crackles and on RA and encouraged to continue to use incentive spirometer at discharge. Outpatient follow up with orthopedics in 10-14 days to begin outpatient physial therapy. Return sx discussed for any fever/chills, cp/shortness of breath or other symptoms. #hypertension Chronic/stable and remained on home chlorthalidone and lisinopril #history of stroke ASA held for 10/09, mental status stable/no issues and to resume 10/10 DVT prophylaxisSCDs Notes For Next Care Provider monitor for need for repeat CXR but suspect as nerve block wearing off will resolve. Continue use incentive spirometer at dc encouraged Medication Changes From Visit Meds from orthopedics for pain Admission HPI Per Admitting Provider pleasant 74F had outpt shoulder surgery today. was unable to wean O2. no sob, generally feeling OK. unable to wean O2 so sent to ER. anesthesia d/w ER physician - "Discussed case with anesthesiologist on patient's post op case, Dr. Watson, at 13:37. Reports that patient was given 0.5 mL bupivicaine with exparel, which lasts about 24-72 hours in length. Recommended that patient would need admission for observation given her hypoxia. Reports that patient is normally do well postop day 1 if they are admitted for their hypoxia."She oth erwise feels okay. Still is a little bit groggy postanesthesia. Family updated at the bedside as well. Answered all questions to the best my ability Admission Exam Per Admitting Provider in general she is awake alert oriented still slightly groggy from anesthesia but no distress. HEENT normocephalic atraumatic mucous membranes moist. Cardio is regular, lungs are quiet bilaterally no rales rhonchi or wheezes good effort. Right shoulder is dressed. Abdomen is soft nondistended nontender no masses organomegaly. Extremities are without sinus clubbing or edema. Neuro shows no lateralizing signs and no focal deficits. Discharge Exam General: 74yo female sitting up in recliner, NAD (mild pain to shoulder) MSK/Neuro:R shoulder in sling, fingers mobile, sensation and pulse intact, service coordinator elderly facility strength acceptable. alert, oriented x 3, cooperative with exam Resp: slight elevation R hemidiaphragm (decreased BS), unlabored, no crackles/wheezing or tachypnea, 95% on RA CV: RRR, no significant m/r/g, no pitting edema GI; +BS, soft/NT Discharge Plan Discharge Items Patient Disposition: Home - Self-Care Reason For Visit: HYPOXIA Discharge Diagnosis: Hypoxia from shoulder surgery/nerve block Goals: You have been hospitalized for an acute medical problem. During your stay at [facility], we have made an effort to correct the problem that brought you to the hospital while keeping you as comfortable as possible. Medications were used to bring your condition under control and your discharge instructions will include directions for any medications you should take after leaving the hospital. Please make sure you see your Primary Care Provider as part of your follow up plan. Activity: As commented below Activity Comment: per orthopedics - nonweight bearing for 6 weeks, to remain in sling Non-emergency contact: Primary Care Provider and Surgeon Call non-emergency contact if: you have any medication questions, your symptoms worsen, your pain is not controlled, your pain is concerning for you and you have a fever Follow-up/Referrals: Patricia Elias MD [Primary Care Provider] - 10/18/24 10:20 am Balta Sue MD [Surgeon] - Diet: Heart Healthy Addtl Attending Provider Instructions: You have been hospitalized after shoulder surgery for hypoxia (low oxygen saturation) which was likely from the nerve block used for surgery. Hypoxia has resolved and you should continue the incentive spirometer and alert primary care of any shortness of breath, fevers. You should follow up with orthopedics in 10-14 days to discuss starting outpatient physical therapy at that time. Remain NON WEIGHT BEARING and in sling until that time or instructed otherwise. Please follow up with primary care in 7-10 days to monitor progress after discharge. Please return to ER with any fever/chills, chest pain, shortness of breath or for any other symptoms concerning for you. It has been a pleasure being a part of the medical team providing for you while you have been in the hospital. Take care! Balta Sue M.D. [facility] [place] Orth[facility] Surgery SHOULDER PROCEDURES WOUND CARE: Leave your dressing in place and keep the area clean and dry. After 3 days, you may remove your dressing. DO NOT REMOVE ANY SUTURES. DO NOT REMOVE THE PAPER TAPE STRIPS THAT ARE CROSSING YOUR INCISION THEY WILL FALL OFF GRADUALLY IN 2-3 WEEKS. After removing your dressing, you may begin to shower with the paper tape strips in place. Do not soak the incision. Allow gentle soap and water to run over the wound(s) and pat dry. Please cover the incision(s) with a clean, dry dressing, as needed. Do not use any ointments or topical medications unless directed by your surgeon. Do not submerse the incisions in water no pools, oceans, lakes, ja cuzzis, bathtubs, etc for at least 3 weeks. ACTIVITY: Remain in the sling provided. Do not lift anything heavier than a cup of coffee with that hand. You may type or use a keyboard as tolerated. You may come out of the sling for careful hygiene and Range of Motion exercises, only. Please perform ROM (range of motion) exercises at least three times daily: 1. Wrist flexion and extension 2. Finger pump 3. Elbow flexion/extension and forearm rotation 4. Supported Codmans Exercises come out of sling, dangle your affected arm. Use your nonoperative (good) arm to support your operative (getting better!) arm at the elbow. Gently rotate/swing your operative arm in a pendulum motion for 1-2 minutes. Rest. Repeat three times. Do not reach out to your side (do not rotate your hand laterally NO EXTERNAL ROTATION) PAIN CONTROL: Use frequent ice to reduce amount of pain medications. Use for 30 minutes per hour. Do not leave in place longer than 30 minutes, especially when your block is in effect, to prevent frostbite or thermal injury. MEDICATIONS: 1. Oxycodone (OxyIR) 1-2 tablet(s) orally every 4 hours for pain as needed. Use with Tylenol. Begin tapering OxyIR as soon as possible: reduce from 2 to 1 pills per dose, then spread out the doses over greater time intervals, then try to use only for therapy or for comfort while sleeping. Continue to use regular Tylenol until pain subsides. 2. Tylenol (325mg): 3 tablets every 8 hours orally. Regular dosing of Tylenol is an important part of your baseline pain control. Do not taper Tylenol until you have successfully tapered off of regular OxyIR. Do not take more than 3000mg of Tylenol per day. 3. Zofran 1 tablet orally every 6 hours as needed for nausea related to anesthesia, pain, and narcotic medications OVER THE COUNTER: Narcotics will cause constipation. Colace and or Miralax can help while you are taking oxycodone or other narcotics. 4. Colace (100mg): take 1-2 tabs twice daily to avoid constipation from OxyIR or other narcotics. 5. Miralax 1 tablespoon in a glass of water 2 times daily until normal bowel movements FOLLOWUP: 1. Ortho Clinic with Dr. Sue: You should be seen in 10-14 days. Please call immediately to schedule if you do not have an appointment. 2. PHYSICAL THERAPY: It is OK to be seen by your therapist before the orthopedic postop appointment, if a specific consult has been placed. Pending Studies at Discharge: No Stand-Alone Forms: My myParcelDelivery, Smoking Cessation Medications and DC Order Prescriptions: Continued acetaminophen-codeine 300-30 mg tablet 1 tab PO UD PRN (Reason: kidney stones) Rx Instructions: 10/08-no fill history available unable to verify diazepam 2 mg tablet 2 mg PO ONCE PRN (Reason: anxiety) Qty: 2 0RF Patient Comments: patient states she never used it Rx Instructions: take one tab 1 hour prior to MRI; repeat x1 if needed chlorthalidone 25 mg tablet 12.5 mg PO QAM Qty: 45 3RF lisinopril 5 mg tablet 5 mg PO QAM Qty: 90 3RF Rx Instructions: TAKE 1 TABLET BY MOUTH EVERY DAY aspirin 81 mg Tablet,Delayed Release (Dr/Ec) 81 mg PO QAM Qty: 30 0RF omeprazole 20 mg capsule,delayed release(DR/EC) 20 mg PO HS Rx Instructions: TAKE 1 CAPSULE BY MOUTH EVERYDAY AT BEDTIME ondansetron 4 mg tablet,disintegrating 4 mg PO Q6H PRN (Reason: nausea and vomiting) Qty: 10 0RF oxycodone 5 mg tablet 5 - 10 mg PO Q6H MDD 6 tablets PRN (Reason: post operative pain) Qty: 18 0RF coenzyme Q10 100 mg capsule 200 mg PO QAM Discharge Orders: Discharge Order (Routine); Ordered 10/09/24 Ordered By: Chuyita Dickey Admission Data Admit Date/Time: 10/08/24 14:41 Attending Provider: Roddy Prieto Admit Provider: Haseeb Dacosta Primary Care Provider: Patricia Elias Other Providers: Haseeb Dacosta Hospital Stay Data Consultations 10/08/24 14:06 ED Decision to Admit Stat Diagnostic Imagining Performed Chest X-Ray 10/08/24 12:39 XR chest 1V portable CLINICAL HISTORY: hypoxia post op COMPARISON STUDY: 08/15/2020 FINDINGS: There is a small hiatal hernia. There is interval moderate elevation of the right hemidiaphragm. There is stranding opacity at the right base, likely atelectasis. No other consolidation or pleural effusion. No pneumothorax. IMPRESSION: Interval moderate elevation of the right hemidiaphragm with likely atelectasis at the right lung base. ACT 112: Negative or not required by law. Electronically signed by: Nirav Cordova M.D. 10/08/2024 1:46 PM Discharge Instructions Given to Patient (Per Discharging Provider) You have been hospitalized after shoulder surgery for hypoxia (low oxygen saturation) which was likely from the nerve block used for surgery. Hypoxia has resolved and you should continue the incentive spirometer and alert primary care of any shortness of breath, fevers. You should follow up with orthopedics in 10-14 days to discuss starting outpatient physical therapy at that time. Remain NON WEIGHT BEARING and in sling until that time or instructed otherwise. Please follow up with primary care in 7-10 days to monitor progress after discharge. Please return to ER with any fever/chills, chest pain, shortness of breath or for any other symptoms concerning for you. It has been a pleasure being a part of the medical team providing for you while you have been in the hospital. Take care! Balta Sue M.D. [facility] Orthopedic Surgery SHOULDER PROCEDURES WOUND CARE: Leave your dressing in place and keep the area clean and dry. After 3 days, you may remove your dressing. DO NOT REMOVE ANY SUTURES. DO NOT REMOVE THE PAPER TAPE STRIPS THAT ARE CROSSING YOUR INCISION THEY WILL FALL OFF GRADUALLY IN 2-3 WEEKS. After removing your dressing, you may begin to shower with the paper tape strips in place. Do not soak the incision. Allow gentle soap and water to run over the wound(s) and pat dry. Please cover the incision(s) with a clean, dry dressing, as needed. Do not use any ointments or topical medications unless directed by your surgeon. Do not submerse the incisions in water no pools, oceans, lakes, jacuzzis, bathtubs, etc for at least 3 weeks. ACTIVITY: Remain in the sling provided. Do not lift anything heavier than a cup of coffee with that hand. You may type or use a keyboard as tolerated. You may come out of the sling for careful hygiene and Range of Motion exercises, only. Please perform ROM (range of motion) exercises at least three times daily: 1. Wrist flexion and extension 2. Finger pump 3. Elbow flexion/extension and forearm rotation 4. Supported Codmans Exercises come out of sling, dangle your affected arm. Use your nonoperative (good) arm to support your operative (getting better!) arm at the elbow. Gently rotate/swing your operative arm in a pendulum motion for 1-2 minutes. Rest. Repeat three times. Do not reach out to your side (do not rotate your hand laterally NO EXTERNAL ROTATION) PAIN CONTROL: Use frequent ice to reduce amount of pain medications. Use for 30 minutes per hour. Do not leave in place longer than 30 minutes, especially when your block is in effect, to prevent frostbite or thermal injury. MEDICATIONS: 1. Oxycodone (OxyIR) 1-2 tablet(s) orally every 4 hours for pain as needed. Use with Tylenol. Begin tapering OxyIR as soon as possible: reduce from 2 to 1 pills per dose, then spread out the doses over greater time intervals, then try to use only for therapy or for comfort while sleeping. Continue to use regular Tylenol until pain subsides. 2. Tylenol (325mg): 3 tablets every 8 hours orally. Regular dosing of Tylenol is an important part of your baseline pain control. Do not taper Tylenol until you have successfully tapered off of regular OxyIR. Do not take more than 3000mg of Tylenol per day. 3. Zofran 1 tablet orally every 6 hours as needed for nausea related to anesthesia, pain, and narcotic medications OVER THE COUNTER: Narcotics will cause constipation. Colace and or Miralax can help while you are taking oxycodone or other narcotics. 4. Colace (100mg): take 1-2 tabs twice daily to avoid constipation from OxyIR or other narcotics. 5. Miralax 1 tablespoon in a glass of water 2 times daily until normal bowel movements FOLLOWUP: 1. Ortho Clinic with Dr. Sue: You should be seen in 10-14 days. Please call immediately to schedule if you do not have an appointment. 2. PHYSICAL THERAPY: It is OK to be seen by your therapist before the orthopedic postop appointment, if a specific consult has been placed. Supervising Physician Co-Signing Physician Notes The patient was not seen by me. The chart was reviewed. Case discussed with BERNY Kenney. 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
== END 2024-10-09 12:08 | disposition home or self-care (01) ==
LOC: ED 12:17 → EDINP 12:17 → SUATTDRO 14:41 → 3W 16:50